=== PATIENT | female | born 2000 | race Caucasian/White ===

== ENCOUNTER → 2022-06-23 14:43 | Outpatient (BNVA) | payer BC, SELFPAY | PROVIDERS: PCP Internal Medicine; Visit Provider Nurse Practitioner Family ==

== ENCOUNTER → 2022-07-13 15:59 | Outpatient (REF) | payer BC, SELFPAY | LOC: HO.SL 15:59 | PROVIDERS: PCP Internal Medicine; Visit Provider Nurse Practitioner Family | DX: G47.9 Sleep disorder, unspecified (principal); G47.19 Other hypersomnia; R06.83 Snoring | CPT/HCPCS: 95806 ==

== ENCOUNTER 2022-08-05 07:57 | Outpatient (REF) | payer BC, SELFPAY ==
--- NOTE | 2022-08-05 08:00 | EEG_ITS ---
PROCEDURE: This is a 16-channel EEG with an EKG lead. Patient is reported awake during the tracing. Background EEG rhythm is 12 to 20, 5 to 20 mV posteriorly and lower amplitude fast anteriorly. Muscle artifacts are noted, especially in inferior leads. Photic stimulation does not produce any significant driving. Hyperventilation is not performed. Cardiac lead does not reveal any significant abnormality. No sharp wave spikes or paroxysmal tendency noted. IMPRESSION: Unremarkable EEG M MD KARLO Pace/BABAR / [id number]
== END 2022-08-05 07:58 | disposition home or self-care (01) ==
LOC: HO.NEURO 07:57
PROVIDERS: PCP Internal Medicine; Visit Provider Nurse Practitioner Family
DX: G43.909 Migraine, unspecified, not intractable, without status migrainosus (principal); R11.15 Cyclical vomiting syndrome unrelated to migraine; R25.1 Tremor, unspecified; R41.82 Altered mental status, unspecified
CPT/HCPCS: 95816

== ENCOUNTER 2022-08-17 10:16 | Outpatient (REF) | payer BC, SELFPAY ==
--- NOTE | ~2022-08-17 | MR_ITS ---
EXAMINATION: MR BRAIN WITHOUT CONTRAST CLINICAL INFORMATION: Altered mental status. Headaches. Tremors. COMPARISON: None. TECHNIQUE: Multiplanar, multisequence imaging of the brain was performed without contrast. FINDINGS: No diffusion abnormalities are identified to suggest an acute infarct. The ventricles are normal in size. No mass effect or midline shift is seen. No brain parenchymal signal abnormality is noted. No extra-axial fluid collections are seen. The brainstem is normal. The left cerebellar tonsil is low-lying, approximately 7 mm caudal to the level of foramen magnum. No lower brainstem compression is seen. The imaged upper cervical cord appears normal. The osseous craniovertebral junction is normal. The pituitary fossa is grossly normal. The gradient refocused acquisition is normal. The marrow signal is normal. The major intracranial flow voids at the level of the [place] are preserved. The dural venous sinus flow voids are maintained. The mastoid air cells are well aerated. Mild ethmoid sinus mucosal thickening noted. 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 Though felt less likely, idiopathic intracranial hypotension can have a similar imaging appearance and clinical correlation is recommended. Query for any history of positional headaches.
== END 2022-08-17 10:17 | disposition home or self-care (01) ==
LOC: HO.MRI 10:16
PROVIDERS: PCP Internal Medicine; Visit Provider Nurse Practitioner Family
DX: R41.82 Altered mental status, unspecified (principal); R25.1 Tremor, unspecified; G43.909 Migraine, unspecified, not intractable, without status migrainosus; R11.15 Cyclical vomiting syndrome unrelated to migraine
CPT/HCPCS: 70551

== ENCOUNTER 2022-10-11 14:45 | Outpatient (AMB) | payer BC, SELFPAY ==
--- NOTE | 2022-10-11 14:51 | MHC.OFFVIS ---
Intake Vital Signs 10/11/22 14:52 Height 5 ft 3 in Weight 200 lb 2 oz BMI 35.4 BP 100/90 H Blood Pressure Location Rt brachial Position Sitting Pulse 100 Pulse Source Pulse Oximeter Pulse Oximetry (%) 99 Oxygen Delivery Method Room Air Intake Visit Reasons: 3M F/u Migraines/new onset shaking - Confirmed Intake Note: Pt presents today to followup on migraines. Pt states they are doing decent, cant really give me a # for migraines a month states they arent necessarily migrainee headaches Allergies haloperidol [From Haldol] Allergy (Intermediate, Verified 10/11/22 14:55) Itching tree nut Allergy (Unknown, Verified 10/11/22 14:55) Unknown Medication List - Last Reconciled 10/11/22 by MENDEZ Lindo epinephrine IM escitalopram oxalate 15 mg PO DAILY PRN lorazepam 0.5 mg PO DAILY PRN ondansetron 4 mg PO Q12H PRN sumatriptan succinate 50 - 100 mg orally at onset of headache, may repeat in 2 hrs PRN; max 2 tabs per day or 4 tabs/week (may take with Ibuprofen) 30 days HPI HPI Comments History of Present Illness Details 21-yr-old presents for f/u visit. Pt denies any significant interval medical changes. Pt reports that they did not try Topiramate- their mother warned them not to take it, as she had had cognitive s/e's from taking it. They are using the Sumatriptan approx 1-2 x's per month which helps- can cause some drowsiness for about 12 hrs- but does not believe this is bothersome enough to try something different. The episodes start with nausea and shaking f/b abd pain (like a knife is cutting her form the inside out), vomiting (this does not stop the attack), shakiness (can be severe and last hours), and a/w photophobia, phonophobia, osmophobia, inability speak (they feel they just cannot communicate during the attack), brain fog, tiredness. May or may not have a headache during the episode.? This is usually occurring at night, but can occur more sporadically during the day as well. The whole episode untreated can last longer than 6 hrs- up to 4 days.? Pt reports that if the headaches are present laying down does not help much. Neck can be tight- possibly r/t chest binder use. No vision changes. Last eye exam- last year- NL. 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 Though felt less likely, idiopathic intracranial hypotension can have a similar imaging appearance and clinical correlation is recommended. Query for any history of positional headaches. 08/05/22: Unremarkable EEG 08/01/22: HST normal w/ AHI 0.3/hr and 92% PFSH Medical History Asthma Depression Family History Mother Hypothyroidism Migraines Maternal Grandmother Lung cancer CAD (coronary artery disease) Paternal Grandmother Lung cancer Father Asthma Heart disease Social History Alcohol intake: never Patient Tobacco Use Status: Never used Tobacco Review of Systems Const All systems reviewed & are unremarkable except as noted in HPI and below Physical Exam Vital Signs: Last Vital Signs Pulse 100 10/11/22 14:52 BP 100/90 H 10/11/22 14:52 Pulse Ox 99 10/11/22 14:52 Oxygen Delivery Method Room Air 10/11/22 14:52 BMI result Body Mass Index 35.4 Const General: cooperative and no acute distress Orientation/consciousness: patient oriented x3 HEENT Head: Yes normocephalic Resp Effort & Inspection: normal respiratory effort and able to speak in complete sentences Neuro General: patient oriented x3, gait normal and CN's II-XI intact bilaterally Cognition (Neuro): normal cognition Motor exam (neuro): 5/5 motor strength present throughout Psych Appearance: grossly normal Mental Status: mental status grossly normal Speech and movement: Normal speech and movement present Affect: normal affect Attitude: cooperative Thought process: Normal thought process present Thought content: Normal thought content present Insight: Good insight present (Psych) Judgement: Good judgement present (Psych) Assessment & Plan Assessment & Plan (1) Cyclical vomiting syndrome: Code(s): R11.15 - Cyclical vomiting syndrome unrelated to migraine (2) Migraine: Code(s): G43.909 - Migraine, unspecified, not intractable, without status migrainosus Plan Reviewed HST- normal Reviewed Brain MRI w/o report and images w/ pt- cerebellar ectopia c/w Chairi I malformation vs intracranial hypotension. Consider f/u MRI w/wo, LP if s/s worsen. Reviewed EEG to rule out an epileptic foci. Eye exam when able For acute headache treatment: Continue Sumatriptan 100mg tab, 1/2 - 1 tab (50-100mg) at onset of headache, may repeat in 2 hours. Max of 2 tabs (200mg) per 24 hours. May adjunct with OTC Tylenol 650mg q 4 hours, Ibuprofen 600mg q 6 hours, or Naproxen 440mg q 12 hrs prn. Continue Lorazepam 0.5mg prn Continue Zofran 4mg ODT- 1-2 tabs prn. Previous acute migraine medication trials: Haldol- burning skin sensation (given in the ER) Acute migraine medication contraindications: none at this time For headache prevention medication: Hold Topiramate 25-50mg qhs- pt wary of s/e's. Previous migraine prevention medication trials: None Migraine prevention medication contraindications: BBs d/t dx of asthma. Amitriptyline- their mother had adverse reaction. F/u in 3 months or sooner prn Coding Level of Care Code Est Pt Level 4 (74113) Diagnoses Cyclical vomiting syndrome R11.15 Migraine G43.909
[2022-10-11 14:52] VITALS: BP 100/90; PULSE 100; O2SAT 99; BMI 35.4
== END 2022-10-11 15:45 | disposition home or self-care (01) ==
PROVIDERS: Visit Provider Nurse Practitioner Family
DX: R11.15 Cyclical vomiting syndrome unrelated to migraine (principal); G43.909 Migraine, unspecified, not intractable, without status migrainosus
CPT/HCPCS: 99214

== ENCOUNTER → 2022-10-11 14:45 | Outpatient (BNVA) | payer BC, SELFPAY | PROVIDERS: Visit Provider Nurse Practitioner Family ==

== ENCOUNTER 2023-01-23 14:44 | Outpatient (AMB) | payer OTHER, SELFPAY ==
--- NOTE | 2023-01-23 14:47 | MHC.OFFVIS ---
Intake Vital Signs 01/23/23 14:48 Weight 216 lb BP 110/76 Blood Pressure Location Rt brachial Position Sitting Pulse 78 Pulse Source Pulse Oximeter Pulse Oximetry (%) 98 Oxygen Delivery Method Room Air Intake Visit Reasons: 3M follow up Migraines/shaking/ LVM Allergies haloperidol [From Haldol] Allergy (Intermediate, Verified 01/23/23 14:50) Itching tree nut Allergy (Unknown, Verified 01/23/23 14:50) Unknown Medication List - Last Reconciled 01/23/23 by MENDEZ Lindo epinephrine IM escitalopram oxalate 15 mg PO DAILY PRN lorazepam 0.5 mg PO DAILY PRN ondansetron 4 mg PO Q12H PRN sumatriptan succinate 50 - 100 mg orally at onset of headache, may repeat in 2 hrs PRN; max 2 tabs per day or 4 tabs/week (may take with Ibuprofen) 30 days HPI HPI Comments History of Present Illness Details 22-yr-old presents for f/u visit. Pt denies any significant interval medical changes. Pt reports she is having a new pressure pain in her left upper lateral paraspinal cervical and left occipital region. They cannot reproduce this with touch. Rarely can have shooting pain down arms. Denies weakness. They are not sure if there is a positional component to this head pain. They wonder if the low lying cerebellar tonsils seen on previous MRI could be contributing. Migraines themselves are not bothersome at this time. [facility] Medical History Depression Asthma Family History Mother Hypothyroidism Migraines Maternal Grandmother Lung cancer CAD (coronary artery disease) Paternal Grandmother Lung cancer Father Asthma Heart disease Social History Alcohol intake: never Patient Tobacco Use Status: Never used Tobacco Review of Systems Const All systems reviewed & are unremarkable except as noted in HPI and below Physical Exam Vital Signs: Last Vital Signs Pulse 78 01/23/23 14:48 BP 110/76 01/23/23 14:48 Pulse Ox 98 01/23/23 14:48 Oxygen Delivery Method Room Air 01/23/23 14:48 Const General: cooperative and no acute distress Orientation/consciousness: patient oriented x3 HEENT Head: Yes normocephalic Resp Effort & Inspection: normal respiratory effort and able to speak in complete sentences Back/Spine/Pelvis Other: Bilateral posterior cervical tightness. Cervical ROM: full Left Spurling: elicited mild non-radiating discomfort Right Spurling: normal. Neuro Other: No palpable facial or scalp tenderness. 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 Trial fluids and caffeine- pt will trial during upcoming break from work. Pt advised to undergo Brain MRI and c-spine MRI w/wo to assess status of low lying cerebellar tonsils, and for presence of pachymeningeal thickening and enhancement?and/or syrinx. ? For acute headache treatment: Continue Sumatriptan 100mg tab, 1/2 - 1 tab (50-100mg) at onset of headache, may repeat in 2 hours. Max of 2 tabs (200mg) per 24 hours. May adjunct with OTC Tylenol 650mg q 4 hours, Ibuprofen 600mg q 6 hours, or Naproxen 440mg q 12 hrs prn. Continue Lorazepam 0.5mg prn Continue Zofran 4mg ODT- 1-2 tabs prn. Previous acute migraine medication trials: Haldol- burning skin sensation (given in the ER) Acute migraine medication contraindications: none at this time ? For headache prevention medication: Hold Topiramate 25-50mg qhs- pt wary of s/e's. Previous migraine prevention medication trials: None Migraine prevention medication contraindications: BBs d/t dx of asthma. Amitriptyline- their mother had adverse reaction. ? F/u in 3 months or sooner prn Orders: Orders MR head/brain wo/w con Today M54.2 - Cervicalgia, Q04.8 - Other specified congenital malformations of brain, R51.9 - Headache, unspecified MR cervical spine wo/w con Today M54.2 - Cervicalgia, Q04.8 - Other specified congenital malformations of brain, R51.9 - Headache, unspecified Coding Level of Care Code Est Pt Level 4 (58834) Diagnoses Cerebellar tonsillar ectopia Q04.8 Occipital headache R51.9 Cervicalgia M54.2 Migraine G43.909
[2023-01-23 14:48] VITALS: BP 110/76; PULSE 78; O2SAT 98
== END 2023-01-23 15:40 | disposition home or self-care (01) ==
PROVIDERS: PCP Internal Medicine; Visit Provider Nurse Practitioner Family
DX: Q04.8 Other specified congenital malformations of brain (principal); R51.9 Headache, unspecified; M54.2 Cervicalgia; G43.909 Migraine, unspecified, not intractable, without status migrainosus
CPT/HCPCS: 99214

== ENCOUNTER → 2023-01-23 14:44 | Outpatient (BNVA) | payer OTHER, SELFPAY | PROVIDERS: PCP Internal Medicine; Visit Provider Nurse Practitioner Family ==

== ENCOUNTER 2023-03-22 15:53 | Outpatient (REF) | payer OTHER, SELFPAY ==
--- NOTE | ~2023-03-22 | MR_ITS ---
EXAMINATION: MR BRAIN WITHOUT AND WITH CONTRAST MRI CERVICAL SPINE WITHOUT AND WITH CONTRAST CLINICAL INFORMATION: Intracranial hypotension. Low lying cerebellar tonsils. Cervical syrinx. COMPARISON: Brain MRI from 08/17/2022. TECHNIQUE: MRI of the brain and cervical spine was obtained using routine sequences without and following the administration of 9 mL of Gadavist intravenous contrast. FINDINGS: Brain: No focal restricted diffusion is demonstrated to suggest acute or subacute cerebral ischemia. No evidence of acute or chronic hemorrhagic products on heme-sensitive imaging. Normal parenchymal signal characteristics. The ventricles are normal in morphology and size. No abnormal mass effect. No midline shift. Normal appearance of the pituitary gland. The cerebellar tonsils are low lying, positioned 0.7 cm below the foramen magnum (similar to exam from 2022). The CSF space of the foramen magnum is maintained. Normal arterial and venous vascular flow voids are present. No abnormal contrast enhancement. Normal, homogeneous marrow signal. Mild mucosal thickening of the paranasal sinuses. No signal abnormalities within the mastoids. Cervical Spine: Straightening of the normal cervical lordosis. Otherwise, normal anatomic alignment. Normal, homogeneous marrow signal throughout. The vertebral body heights are maintained. The intervertebral discs are of normal height and signal. The spinal cord is normal in appearance. No demonstrated spinal cord signal abnormalities. No abnormal contrast enhancement. Limited evaluation of the soft tissues of the neck without demonstrated abnormalities. The flow voids of the major cervical vessels are maintained. Normal appearance of the cervicomedullary junction and visualized posterior fossa. SPINAL LEVELS: Normal annular contours. There is no uncovertebral joint arthropathy. There is no facet joint arthropathy. There is no neural foraminal stenosis. There is no spinal canal stenosis. MR/MR cervical spine wo/w con IMPRESSION: 1. No acute intracranial abnormalities. No abnormal intracranial enhancement. 2. The cerebellar tonsils remain low lying, positioned 0.7 cm below the foramen magnum (similar to exam from 2022). This may be seen in the setting of underlying Chiari I malformation. No demonstrated additional secondary findings of intracranial hypotension/hypertension at this time. 3. No additional MRI abnormalities of the cervical spine. No abnormal enhancement.
[2023-03-22] MEDS: gadobutroL 10 ML VIAL 9 ML IVPUSH (16:58)
== END 2023-03-22 15:54 | disposition home or self-care (01) ==
LOC: HO.MRI 15:53
PROVIDERS: PCP Internal Medicine; Visit Provider Nurse Practitioner Family
DX: Q04.8 Other specified congenital malformations of brain (principal); R51.9 Headache, unspecified; M54.2 Cervicalgia
CPT/HCPCS: 70553; 72156; A9585

== ENCOUNTER 2024-05-03 13:44 | Outpatient (AMB) | payer OTHER, SELFPAY ==
--- NOTE | 2024-05-03 13:44 | A.OFFVIS_ITS ---
Intake Visit Reasons: ED follow up Intake Note: Patient presents ED Follow. Patient was seen at [facility] on Monday04/29/24 and then was seen at [facility] 04/30/24(rec received). 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 orally daily; 21 days sumatriptan succinate 50 - 100 mg orally at onset of headache, may repeat in 2 hrs PRN; max 2 tabs per day or 4 tabs/week (may take with Ibuprofen) 30 days zolmitriptan (Zomig) take 1 tab at onset of headache; if no relief, may repeat 1 tab after at least 2 hrs; max = 2 tabs/24 hrs PO 30 days HPI Comments Details: 23-yr-old presents for f/u urgent televideo visit for status migraine. Pt was last seen in Jan 2023. Pt denies any significant interval medical changes. Pt reports they were having a migraine every 2-4 weeks, which was responsive to sumatriptan. They has noticed a slight increase frequency in migraine in the last few months. 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 Then 1.5 weeks ago, she developed a more severe migraine, they took sumatriptan which helped, but then woke up again with the headache, and that pattern repeated for a few days, and then they developed N/V. Then developed dizziness, and could not work Thursday, and tried to work Monday but was very photophobic- had to wear sunglasses all day. Then Monday, developed vomiting. On Monday, they went to [facility] ER- tx'd w/ migraine cocktail and once effective d/c'd pt. On Monday, they felt ok. On Monday, woke up ok, but then around 8am developed bad vertigo- had to catch herself on the wall. She saw her PCP in the afternoon, on the way to the PCP office, developed a right sided electrical pain stemming from the neck moving up the head, and then had right frontal sharp pain a/w photophobia, phonophobia. The PCP sent them back to the ER. In the ER, was given a migraine cocktail which was effective, and head CT was baseline. On Mon- they felt better, but after school, again developed nausea and migraine and could not do scheuled plans. discharged home on alt ibuprofen and tylenol. On - felt less throbbing headache, and more a pressure headache- not as severe as before. But was having neck tightness, stiffness, and left sided neck electrical neck/back spine. Note- rizatriptan is better tolerated but takes longer to work and not as effective as sumatriptan. They had called the office with above- I sent orders for prednisone, omeprazole, cyclobenzaprine. Started the cyclobenzaprine last night- helped them sleep better and was not waking up every few hours. they started prednisone last night and took 2nd dose thsi am. using a heating maurer on neck and resting is feeling less headache today and less but still present neck tightness. 03/22/2023, MR/MR head/brain wo/w con and MR/MR cervical spine wo/w con IMPRESSION: 1. No acute intracranial abnormalities. No abnormal intracranial enhancement. 2. The cerebellar tonsils remain low lying, positioned 0.7 cm below the foramen magnum (similar to exam from 2022). This may be seen in the setting of underlying Chiari I malformation. No demonstrated additional secondary findings of intracranial hypotension/hypertension at this time. 3. No additional MRI abnormalities of the cervical spine. No abnormal enhancement. [facility] Medical History Depression Asthma Family History Mother Hypothyroidism Migraines Maternal Grandmother Lung cancer CAD (coronary artery disease) Paternal Grandmother Lung cancer Father Asthma Heart disease Social History Alcohol intake: never Patient Tobacco Use Status: Never used Tobacco Physical Exam Const General: cooperative and no acute distress Orientation/consciousness: patient oriented x3 Resp Effort & Inspection: normal respiratory effort and able to speak in complete sentences Neuro General: patient oriented x3 Cognition (Neuro): normal cognition Psych Appearance: grossly normal Mental Status: mental status grossly normal Speech and movement: Normal speech and movement present Affect: normal affect Attitude: cooperative Telehealth Telehealth Telehealth Platform: Whatever Location of provider rendering services: practice address Location of patient: address on file Patient Identification confirmed using: Name, : Yes Telehealth method: video Patient verbally consented to treatment: Yes Patient verbally consented to billing insurance company: Yes Patient informed of any privacy concerns related to visit: Yes Minutes spent on Phone/Video with Pt.: 40 Assessment & Plan Assessment & Plan (1) Status migrainosus: Code(s): G43.901 - Migraine, unspecified, not intractable, with status migrainosus Category: Medical (2) Migraine: Code(s): G43.909 - Migraine, unspecified, not intractable, without status migrainosus Category: Medical (3) Nausea and vomiting: Code(s): R11.2 - Nausea with vomiting, unspecified Category: Medical (4) 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 For status migraine: Continue prednisone taper as ordered Omeprazole 20 mg daily for GI protection while on prednisone Continue cyclobenzaprine 5-10 mg q.h.s. as needed for neck pain and muscle spasm/tightness Zofran 4 mg every 12 hours as needed Trial of Zomig, in hopes this is effective and better tolerated than sumatriptan. Trial sumatriptan 20 mg intranasal spray at onset of migraine associated with nausea and vomiting, may repeat in 2 hours, max 40 mg per day. Future considerations: DHE, budesonide, Zomig nasal spray, sumatriptan injection. ? For acute headache treatment: Continue Sumatriptan 100mg tab, 1/2 - 1 tab (50-100mg) at onset of headache, may repeat in 2 hours. Max of 2 tabs (200mg) per 24 hours. May adjunct with OTC Tylenol 650mg q 4 hours, Ibuprofen 600mg q 6 hours, or Naproxen 440mg q 12 hrs prn. Continue Lorazepam 0.5mg prn Continue Zofran 4mg ODT- 1-2 tabs prn. Previous acute migraine medication trials: Haldol- burning skin sensation (given in the ER). Rizatriptan- not as effective as sumatriptan. Acute migraine medication contraindications: none at this time ? For headache prevention medication: Continue to hold previous recommendation for Topiramate 25-50mg qhs- pt was wary of s/e's. Previous migraine prevention medication trials: None Migraine prevention medication contraindications: BBs d/t dx of asthma. Amitriptyline- their mother had adverse reaction. ? F/u in 3 months or sooner prn Medications: New sumatriptan 20 mg/actuation administer into one nostril as a single dose; if 2nd dose needed,administer into other nostril after at least 2 hrs, NTE 2 doses (40 mg) per episode 20 mg intranasal Q2H PRN 6 ea 6RF migraine headache 22 days G43.909 - Migraine, unspecified, not intractable, without status migrainosus, R11.2 - Nausea with vomiting, unspecified Changed From ondansetron 4 mg PO Q12H PRN nausea To ondansetron 4 mg PO Q12H PRN 30 tabs 3RF nausea 30 days Refilled sumatriptan succinate 50 - 100 mg orally at onset of headache, may repeat in 2 hrs PRN; max 2 tabs per day or 4 tabs/week (may take with Ibuprofen) 12 tabs 6RF migraine headache 30 days Coding Level of Care Code Tele Est Pt Level 4 (22200) Diagnoses Status migrainosus G43.901 Migraine G43.909 Nausea and vomiting R11.2 Cerebellar tonsillar ectopia Q04.8 Occipital headache R51.9 Cervicalgia M54.2
--- OUTSIDE RECORDS SUMMARY | 2024-05-03 15:29 | XMS_ITS | Encounter Summary ---
Author Organization [facility] Address [address] [facility] [address] [place] [phone] Phone Care Team Providers Care Skiver Heel Tap Name Role Phone Mable Ramirez CNP Primary Care Provid er Reason for Referral * E-Consult - New Request Specialty Diagnoses / Procedures Referred By Angela ortega Referred To Contact Endocrinology Diagnoses Thyroid disease Procedures Ambulatory [facility] Endocrinology E-Consult Esperanza Toure MD [address] [place] [phone] Referral ID Status Reason Start Date Expiration Date V isits Requested Visits Authorized [id number] New Request 05/02/2024 1 1 Encounter Details Date Type Department Care Team (Late st Contact Info) Description 05/01/2024 Orders Only [facility] [address] [place] [address] [phone] Esperanza Toure MD [address] [place] [address] [phone] Thyroid disease (Primary Dx) Social History Tobacco Use Types Packs/Day Years Used Date Smoking Tobacco: Never Smokeless Tobacco: Never Child or Family Care Answer Date Record ed Do you have problems with on e of the following making it difficult for you to work, study, or receive health care? No 02/01/2024 Education Answer Date Recorded Are you interested in help w ith more adult education (for example, completing high school, GED, job training, learning the [place] language, technical skills, or developing parenting skills)? No 02/01/2024 Are you concerned about learning? Not on file 02/01/2024 No 02/01/2024 Yes 02/01/2024 Food Answer Date Recorded Within the past 6 months we worried whether our food would run out before we got money to buy more. Never True 02/01/2024 Within the past 6 months the food we bought just didn't last and we didn't have enough money to get more. Never True Residential Stability Answer Date Recor ded What is your housing situation today? I have anoop sing 02/01/2024 How many times have you move d in the past 12 months? Zero (I did not move) 02/01/2024 Paying for Meds Answer Date Recorded Do you have trouble paying for medicines? No 02/01/2024 Paying Utility Bills Answer Date Record ed Do you have trouble paying your heating or elect ricity bill? No 02/01/2024 Transportation Answer Date Recorded Has the lack of transportati on kept you from medical appointments or from getting medications? No 10/13/2022 Unemployment Answer Date Recorded Are you currently unemployed or working on a part-time or temporary basis, and looking for work? No 02/01/2024 Digital Access Answer Date Recorded No 02/01/2024 Yes 02/01/2024 Do you have reliable internet access at home? Ye s 02/01/2024 Do you have a device (e.g., phone, tablet, computer) with a working camera? Yes 02/01/2024 Intimate Partner Violence Answer Date R ecorded Are you denied basic needs s uch as food, clothing, or medical care? No 04/30/2024 In the past 12 months have y ou been in a relationship with a person who hurts, threatens, or tries to control you? No 04/30/2024 Are you denied basic needs s uch as food, clothing, or medical care? No 04/30/2024 In the past 12 months have y ou been in a relationship with a person who hurts, threatens, or tries to control you? No 04/30/2024 Sex and Gender Information Value Date Recorded Sex Assigned at Female 01/22/2024 11:57 AM EST Gender Identity Transgender Male 01/22/2024 11:5 7 AM EST Sexual Orientation Queer 01/22/2024 11 :57 AM EST documented as of this encounter Plan of Treatment Not on file documented as of this encounter Visit Diagnoses Diagnosis Thyroid disease- Primary Unspecified disorder of thyroid documented in this encounter Additional Health Concerns Assessment Noted Time PHQ-9 Depression Total Score: 10 024 7:11 PM EST PHQ-2 Depression Total Score: 3 02/01/20 24 7:11 PM EST documented as of this encounter Care Teams Skiver Heel Tap Relationship Specialty Start Date End Date Mable Ramirez CNP [address] [place] [phone] PCP - General Nurse Practitioner 02/08/24 documented as of this encounter Additional Source Comments The information contained in this document represents components of the legal health record. It is not the complete legal health record.[facility]
--- OUTSIDE RECORDS SUMMARY | 2024-05-03 15:29 | XMS_ITS | Clinical Summary ---
Author Organization [facility] Address [address] [facility] [place] [address] [place] [phone] Phone Care Team Providers Care Redipper Name Role Phone Mable Ramirez CNP Primary Care Provid er Allergies Active Allergy Reactions Criticality Noted Date Comments Haloperidol Anxiety,Itching,Shor tness Of Breath,Sweating High 04/30/2021 Tree Nuts Anaphylaxis,Cough,Hi ves,Itching,Nausea and/or Vomiting High 10/14/2022 Medications Medication Sig Dispensed Refills Start Date End Date Status SUMAtriptan (IMITREX) 100 MG tablet Take 100 mg by mouth daily as needed. Active ondansetron (ZOFRAN-ODT) 4 MG disintegrating tablet TAKE 1 TABLET EVERY 12HOURS NEEDED FOR NAUSEA 10/04/2022 Active LORazepam (ATIVAN) 0.5 MG tablet Take 0.5 mg by mouth continuous prn. 07/23/2021 Active cetirizine (ZYRTEC) 10 MG tablet Take 10 mg by mouth daily. Active escitalopram oxalate (LEXAPRO) 10 MG tablet TAKE 1 AND 1/2 TABLETS DAILY BY MOUTH 90 tablet 5 05/23/2023 Active hydrOXYzine HCL (ATARAX) 10 MG tablet Take 10 mg by mouth daily as needed (insomnia). Active buPROPion (WELLBUTRIN XL) 150 MG ER 24 hr tablet Take 150 mg by mouth every morning. 12/21/2023 Active buPROPion SR (SMOKING DETERRENT) 150 mg Take 150 mg by mouth daily as needed. 01/27/2024 Active sodium chloride (OCEAN) 0.65 % nasal spray 1 spray by Nasal route. 11/13/2023 Active albuterol 90 mcg/actuation inhaler Inhale 2 puffs into the lungs every 6 (six) hours as needed for wheezing or shortness of breath/dyspnea. 8 g 3 04/05/2024 Active albuterol 90 mcg/actuation inhaler Inhale 2 puffs into the lungs every 6 (six) hours as needed. Discontinue d(Reorder) Active Problems Problem Noted Date Diagnosed Date Cyclic vomiting syndrome 10/17/2022 023 Encounters Date Type Department Care Team Description 05/03/2024 Nurse Triage [facility] [address] [place] [phone] Esperanza Toure MD 05/02/2024 E-Consult [facility] [address] [place] [address] Monika Moran MD 05/02/2024 Telephone [facility] [address] [place] [address] 72735 Caroline Yap RN Triage 05/01/2024 Orders Only [facility] [address] [place] [address] Esperanza Toure MD Thyroid disease (Primary Dx) 04/30/2024 3:53 PM EDT - 04/30/2024 7:34 PM EDT Emergency [facility] [address] [place] [phone] Discharge Disposition: Home or Self Care 04/30/2024 2:30 PM EDT Office Visit [facility] [address] [place] [phone] Esperanza Toure MD Acute intractable headache, unspecified headache type (Primary Dx); History of Chiari malformation 04/30/2024 Procedure Pass [facility], Ct Scan - [address] [address] 04/30/2024 Telephone [facility] [address] [place] [address] [phone] Belinda Kang RN Headache 04/05/2024 Refill [facility] [address] [place] [phone] Bal Dewitt MA Medication Refill 02/12/2024 10:25 AM EST - 02/12/2024 11:59 PM EST Hospital Encounter [facility] [address] [address] Esperanza Toure MD Discharge Disposition: Home or Self Care 02/12/2024 10:00 AM EST Office Visit [facility] [address] [place] [phone] Esperanza Toure MD Hyperthyroidism (Primary Dx) 02/09/2024 Orders Only [address] [address] Esperanza Toure MD Hyperthyroidism (Primary Dx); Hypothyroidism, unspecified type 02/08/2024 11:42 AM EST - 02/08/2024 11:59 PM EST Hospital Encounter [facility] [address] [address] Esperanza Toure MD Discharge Disposition: Home or Self Care 02/08/2024 11:00 AM EST Office Visit [facility] [address] Esperanza Toure MD Annual physical exam (Primary Dx) 02/05/2024 Telephone [facility] [address] [place] [phone] Mable Ramirez CNP from Last 3 Months Immunizations Name Administration Dates Next Due COVID-19 (Pre-12/12) Pfizer Vaccine, mRNA, PF 11/30/2020,05/20/2020,04/29/2020 DTaP 03/04/2005, 2,05/30/2000,03/30,01/27/2000 HPV9 03/01/2021,11/04/2020,08/28/2020 Hepatitis B, unspecified formulation 08/21/2000, 1999,1999 Hib, unspecified formulation 08/08/2001, 05/30/2000,03/30/2000,01/26 IPV 03/04/2005, 1,03/30/2000,01/26 Influenza Quadrivalent w/ Pr eservative IM 03/01/2021 Influenza Recombinant Jasmina valent Preservative Free IM 12/18/2019 MMR 03/01/2004,11/28/2000 Meningococcal B, OMV (MenB-4C) 10/11/2018 Meningococcal Conjugate Quad rivalent, MenACWY-TT (MCV4) 08/13/2018,06/25/2012 Pneumococcal conjugate PCV13 11/28/2000,08/22/19,05/30/2000 Tdap 08/28/2020,01/18/2010 Varicella 01/18/2010,11/28/2000 Family History Medical History Relation Comments Heart disease Father Breast cancer Maternal Aunt Lung cancer Maternal Grandmother Migraines Mother Multiple sclerosis Mother Thyroid disease Mother Lung cancer Paternal Grandmother Thyroid cancer Paternal Grandmother Cerebral palsy Sister Thyroid disease Sister Relation Status Comments Father Maternal Aunt Maternal Grandmother Mother Alive Paternal Grandmother Sister Three sisters Social History Tobacco Use Types Packs/Day Years Used Date Smoking Tobacco: Never Smokeless Tobacco: Never Tobacco Cessation:Counseling Given: Not Answered Child or Family Care Answer Date Record ed Do you have problems with on e of the following making it difficult for you to work, study, or receive health care? No 02/01/2024 Education Answer Date Recorded Are you interested in help w ith more adult education (for example, completing high school, GED, job training, learning the [place] language, technical skills, or developing parenting skills)? [...] Orientation Queer 01/22/2024 11 :57 AM EST Last Filed Vital Signs Vital Sign Reading Time Taken Comments Blood Pressure 116/72 04/30/2024 7:33 PM EDT Pulse 68 04/30/2024 7:33 PM EDT Temperature 37.4 ??C (99.3 ??F) 04/30/2024 6:29 PM ED T Respiratory Rate 16 04/30/2024 7:33 PM EDT Oxygen Saturation 98% 04/30/2024 7:33 PM EDT Inhaled Oxygen Concentration - - Weight 100 kg (220 lb 7.4 oz) 04/30/2024 3:25 PM EDT Height 165.1 cm (5' 5 ) 04/30/2024 3:25 PM EDT Body Mass Index 36.69 04/30/2024 3:25 PM EDT Plan of Treatment Health Maintenance Due Date Last Done Comments REPEAT PHQ 03/03/2024 02/01/2024, 02/01/2024 COVID-19 VACCINE ( season) 2024 11/30/2020, 05/20/2020, 04/29/2020 Postponed from 10/22/2023 (Patient Declines / Guardian Declines) INFLUENZA VACCINE (#1) 2024 03/01/2021, 2019 Postponed from 09/21/2023 (Patient Declines / Guardian Declines) PAP SMEAR 10/21/2024 Postponed from 11/25/2020 (Not Clinically Appropriate) HIV ONE-TIME SCREENING (18-65 YEARS) 01/20/2025 Postponed from 11/25/2017 (Patient Declines / Guardian Declines) SMOKING Hx and SMOKELESS TOBACCO SCREENING 01/20/2025 Postponed from 11/25/2012 (Not Clinically Appropriate) DEPRESSION SCREENING 01/31/2025 02/01/2024, 02/01/20 24 CHLAMYDIA SCREENING 02/07/2025 Postpone d from 2015 (Patient Declines / Guardian Declines) HEPATITIS C SCREENING 02/07/2025 Postpo earlene from 11/25/2017 (Patient Declines / Guardian Declines) Adult Td,Tdap Booster 08/28/2030 08/28/2020, 010 PNEUMOCOCCAL VACCINES (0-49 years) Completed 11/28/2000, 08/21/2000, 05/30/2000 HIB VACCINES Completed 08/08/2001, 05/21, 03/30/2000, Additional history exists MENINGOCOCCAL VACCINES (ACWY) Completed 08/13/2018, 06/25/2012 HPV VACCINES Completed 03/01/2021, 10/21, 08/28/2020 HEPATITIS A VACCINES Aged Out No long er eligible based on patient's age to complete this topic Medical Devices Not on file Procedures Procedure Name Priority Date/Time Associated Diagnosis Comments CT HEAD WITHOUT CONTRAST Routine 04/30/2024 5:21 PM EDT TSH WITH REFLEX STAT 04/30/2024 4:40 PM EDT FREE T3 Routine 02/12/2024 10:25 AM EST FREE T4 Routine 02/12/2024 10:25 AM EST TSH WITH REFLEX Routine 02/12/2024 10:25 AM EST Hyperthyroidism THYROID STIMULATING IMMUNOGLOBULIN Routine 02/12/2024 10:25 AM EST Hyperthyroidism FREE T3 Routine 02/08/2024 11:42 AM EST FREE T4 Routine 02/08/2024 11:42 AM EST CBC Routine 02/08/2024 11:42 AM EST Annual physical exam COMPREHENSIVE METABOLIC PANEL Routine 02/08/2024 11:42 AM EST Annual physical exam LIPID PANEL Routine 02/08/2024 11:42 AM EST Annual physical exam TSH WITH REFLEX Routine 02/08/2024 11:42 AM EST Annual physical exam from Last 3 Months Results * CT HEAD WITHOUT CONTRAST (04/30/2024 5:21 PM EDT) Anatomical Region Laterality Modality Head Computed Tomogra phy 04/30/2024 6:53 PM EDT Impressions 04/30/2024 7:00 PM EDT No acute intracranial findings. Low-lying cerebellar tonsils. Narrative 04/30/2024 7:[address] HEAD WITHOUT CONTRAST Referring clinician's provided indication for this examination in Epic: * Headache, chronic, new features or increased frequency; known chiari malformation TECHNIQUE: CT of the head was performed without intravenous contrast using tailored dose modulation techniques. Images were reconstructed in the axial, coronal, and sagittal planes. COMPARISON: None. FINDINGS: Brain Parenchyma: No midline shift, mass effect, parenchymal hemorrhage, or evidence of acute territorial infarct. Ventricular System and Extra-Axial Spaces: No extra-axial fluid collections. Basal cisterns are patent. No hydrocephalus. There are low lying cerebellar tonsils with crowding of the cerebellar tonsils at the foramen magnum. Osseous and Extracranial Structures: No calvarial fracture or significant soft tissue hematoma. No significant paranasal sinus disease. No orbital abnormality. Procedure Note Federico Wright MD - 04/30/2024 CT HEAD WITHOUT CONTRAST Referring clinician's provided indication for this examination in [facility]: *Headache, chronic, new features or increased frequency; known chiarimalformation TECHNIQUE: CT of the head was performed without intravenous contrast usingtailored dose modulation techniques. Images were reconstructed in theaxial, coronal, and sagittal planes. COMPARISON: None. FINDINGS: Brain Parenchyma: No midline shift, mass effect, parenchymal hemorrhage,or evidence of acute territorial infarct. Ventricular System and Extra-Axial Spaces: No extra-axial fluidcollections. Basal cisterns are patent. No hydrocephalus. There are lowlying cerebellar tonsils with crowding of the cerebellar tonsils at theforamen magnum. Osseous and Extracranial Structures: No calvarial fracture or significantsoft tissue hematoma. No significant paranasal sinus disease. No orbitalabnormality. IMPRESSION: No acute intracranial findings. Low-lying cerebellar tonsils. Gayla Stevenson PA-C IMG CT HEAD/NECK * TSH with reflex (04/30/2024 4:40 PM EDT) Only the most recent of3 resultswithin the time period is included. TSH 1.70 0.27 - 4.20 uIU/mL [facility] Blood 04/30/2024 4:40 PM EDT 04/30/2024 4:43 PM EDT Gayla Stevenson PA-C LAB BLOOD ORDERABLE S [facility] [address] [place] [address] * (ABNORMAL) Thyroid stimulating immunoglobulin (02/12/2024 10:25 AM EST) TSI 1.9(H) <=1.3 TSI index [facility] [address] Blood 02/12/2024 10:2 5 AM EST 02/12/2024 10:50 AM EST Esperanza Toure MD LAB BLOOD ORDERABLE S [facility] [address] [place] [address] * Free T3 (02/12/2024 10:25 AM EST) Only the most recent of2 resultswithin the time period is included. FREE T3 3.3 2.0 - 4.4 pg/mL [facility] 02/12/2024 10:2 5 AM EST 02/12/2024 10:50 AM EST Esperanza Toure MD LAB BLOOD ORDERABLE S Performing Organization Address [facility] Co de Phone Number [address] [address] * Free T4 (02/12/2024 10:25 AM EST) Only the most recent of2 resultswithin the time period is included. FREE T4 1.2 0.9 - 1.7 ng/dL [facility] 02/12/2024 10:2 5 AM EST 02/12/2024 10:50 AM EST Esperanza Toure MD LAB BLOOD ORDERABLE S Performing Organization Address City/[facility]/ZIP Co de Phone Number [address] [address] * (ABNORMAL) Comprehensive metabolic panel (02/08/2024 11:42 AM EST) SODIUM 140 133 - 146 mmol/L [facility] POTASSIUM 3.8 3.3 - 5.1 mmol/L [facility] CHLORIDE 102 96 - 108 mmol/L [facility] CO2 25 21 - 35 mmol/L [facility] BUN 5(L) 6 - 19 mg/dL [facility] CREATININE 0.60 0.5 - 1.5 mg/dL [facility] GLUCOSE 76 70 - 99 mg/dL [facility] ALBUMIN 4.4 3.9 - 4.8 g/dL [facility] TOTAL PROTEIN 7.6 6.5 - 8.0 g/dL [facility] CALCIUM 10.0 8.4 - 10.3 mg/dL [facility] ALKALINE PHOSPHATASE 88 39 - 117 U/L [facility] TOTAL BILIRUBIN 0.4 0.0 - 1.2 mg/dL [facility] AST 32 0 - 37 U/L [facility] ALT 11 0 - 40 U/L [facility] GLOBULIN 3.2 1 - 4.8 g/dL [facility] EGFR >120 >59 mL/min/1.7 3m2 [facility] Comment:Estimated glomerular filtration rate calculated using the CKD-EPI refit equation. ANION GAP 17 10 - 20 mmol/L [facility] Blood 02/08/2024 11:4 2 AM EST 02/08/2024 11:47 AM EST Esperanza Toure MD LAB BLOOD ORDERABLE S Performing Organization Address City/State/[facility] Co de Phone Number [address] [address] * CBC (02/08/2024 11:42 AM EST) WBC 7.52 4.00 - 11.00 K/uL [facility] RBC 4.94 4.00 - 5.20 M/uL [facility] HGB 14.7 12.0 - 16.0 g/dL [facility] HCT 43.7 36.0 - 46.0 % [facility] PLT 376 150 - 450 K/uL [facility] MCV 88.5 80.0 - 100.0 fL [facility] MCH 29.8 27.0 - 31.0 pg [facility] MCHC 33.6 32.0 - 36.0 g/dL [facility] RDW 12.7 11.5 - 14.5 % [facility] MPV 10.3 8.4 - 12.0 fL [facility] NRBC 0.00 0.00 /100 WBCs [facility] ABSOLUTE NRBC 0.00 0.00 K/uL [facility] Blood 02/08/2024 11:4 2 AM EST 02/08/2024 11:47 AM EST Esperanza Toure MD LAB BLOOD ORDERABLE S Performing Organization Address [facility]/ZIP Co de Phone Number [address] [address] * Lipid panel (02/08/2024 11:42 AM EST) HDL 42 mg/dL [facility] Comment: ? Interpretation <40 mg/dL: Low HDL cholesterol (major risk factor for CHD) Greater than or equal to 60 mg/dL: High HDL cholesterol ( negative risk factor for CHD) HDL - cholesterol is affected by a number of factors, e.g. smoking, excerise, hormones, sex and age. CHOLESTEROL 164 0 - 240 mg/dL [facility] TRIGLYCERIDES 71 30 - 160 mg/dL [facility] LDL 108 50 - 129 mg/dL [facility] Comment: LDL levels in terms of risk for coronary heart disease: <100 mg/dL: Optimal 100-129 mg/dL: Near or above optimal 130-159 mg/dL: Borderline high 160-189 mg/dL: High >190 mg/dL: Very High CARDIAC RISK RATIO 3.9 3.3 - 4.4 C [facility] Blood 02/08/2024 11:4 2 AM EST 02/08/2024 11:46 AM EST Esperanza Toure MD LAB BLOOD ORDERABLE S [address] [address] from Last 3 Months Care Teams Redipper Relationship Specialty Start Date End Date Mable Ramirez CNP [address] [place] [phone] PCP - General Nurse Practitioner 02/08/24 Additional Source Comments The information contained in this document represents components of the legal health record. It is not the complete legal health record.[facility]
--- OUTSIDE RECORDS SUMMARY | 2024-05-03 15:29 | XMS_ITS | Encounter Summary ---
Author Organization [facility] Address [address] [facility] [address] [place] [phone] Phone Care Team Providers Care Supervisor Buffing And Pasting Name Role Phone Mable Ramirez CNP Primary Care Provid er Reason for Visit * Reason Onset Date Comments Triage 05/02/2024 Encounter Details Date Type Department Care Team (Late st Contact Info) Description 05/02/2024 Telephone [facility] [address] [place], [place] [id number] Caroline Yap, MAYE [address] [place], [place] Triage Social History Tobacco Use Types Packs/Day Years [...] high school, GED, job training, learning the [place] language, technical skills, or developing parenting skills)? [...] AM EST documented as of this encounter Progress Notes * Caroline Yap, RN - 05/02/2024 4:21 PM EDT Outgoing call to Ab to check in. Pt states they got in touch with neurologist's office and reports they are considering starting pt on prednisone to bring down inflammation. Pt states they are hopeful they will see their neurologist tomorrow. Pt will f/u PRN, had no further questions. * Caroline Yap RN - 05/02/2024 12:23 PM EDT Incoming call from Ab re: Head pain Pt reports that their headache has returned and the pain in their neck feels like it's now going down their spine. Pt seen at [facility] ED 04/29, given migraine cocktail, which helped for ~24 hours until it wore off, pain returned. Seen 04/30 at with Esperanza Alatorre MD and instructed to go to [facility] ED wherept given another migraine cocktail and pain improved. After 24 hours, medication wore off and pain has returned. Pt sounded distressed over phone and was intermittently crying. Pt reports Hx of migraines/headaches that improved in 24 hours, but reports that this episode has lasted almost 1.5 weeks and seems to be worsening. Currently taking Aspirin & Tylenol (last dose today at 8:30am). States that pain is insufficiently controlled. Currently pt is experiencing dizziness, neck pain, and headache Hx Chiari malformation that had not previously been treated with surgical intervention because Sx'shadn't been severe. Currently has a neurologist they see at [facility]. Pt states they have an appointment tomorrow 05/03 and pt is concerned that the provider will cancel appointmentbecause the provider has called out sick recently. I advised they should contact the neurologist office for support. I advised that their neurologist would be the best resource, and that pt's Sx's exceed the capability of us as their primary care office. Advised that they could go to ED for another migraine cocktail to improve Sx's for the time being. I advised that they continue taking their OTC pain medications. Provided emotional support and told them that I wish we could help them more. Pt verbalized understanding, agreed with plan, will contact neuro, will f/u PRN, and had no furtherquestions. documented in this encounter Plan of Treatment Not on file documented as of this encounter Visit Diagnoses Not on filedocumented in this encounter Additional Health Concerns Assessment Noted Time PHQ-9 Depression Total Score: 10 024 7:11 PM EST PHQ-2 Depression Total Score: 3 02/01/20 7:11 PM EST documented as of this encounter Care Teams Supervisor Buffing And Pasting Relationship Specialty Start Date End Date Mable Ramirez CNP [address] [place] [phone] PCP - General Nurse Practitioner 02/08/24 documented as of this encounter Additional Source Comments The information contained in this document represents components of the legal health record. It is not the complete legal health record.[facility]
--- OUTSIDE RECORDS SUMMARY | 2024-05-03 15:29 | XMS_ITS | Encounter Summary ---
Author Organization [facility] Address [address] [employer] [facility] [address] [place] [phone] Phone Care Team Providers Care Immigration Judge Name Role Phone Mable Ramirez CNP Primary Care Provid er Encounter Details Date Type Department Care Team (Late st Contact Info) Description 05/03/2024 Nurse Triage [facility] [address] [place] [address] [phone] Esperanza Toure MD [address] [place] [address] [phone] Social History Tobacco Use Types Packs/Day Years [...] high school, GED, job training, learning the Sammarinese language, technical skills, or developing parenting skills)? [...] your housing situation today? I have anoop butler 02/01/2024 How many times have you move [...] as of this encounter Plan of Treatment Scheduled Orders Name Type Priority Associated Diagnoses Orde r Schedule TSH with reflex Lab Routine Graves disease Expected: 06/03/2024, Expires: 08/03/2024 documented as of this encounter Visit Diagnoses Diagnosis Graves disease- Primary Toxic diffuse goiter without mention of thyrotoxic crisis or storm documented in this encounter Additional Health Concerns Assessment Noted Time PHQ-9 Depression Total Score: 10 024 7:11 PM EST PHQ-2 Depression Total Score: 3 02/01/20 24 7:11 PM EST documented as of this encounter Care Teams Immigration Judge Relationship Specialty Start Date End Date Mable Ramirez CNP [address] [place] [phone] PCP - General Nurse Practitioner 02/08/24 documented as of this encounter Additional Source Comments The information contained in this document represents components of the legal health record. It is not the complete legal health record.[facility]
--- OUTSIDE RECORDS SUMMARY | 2024-05-03 15:29 | XMS_ITS | Encounter Summary ---
Author Organization [facility] Address [address] [facility] [address] [place] [phone] Phone Care Team Providers Care Coil Binder Name Role Phone Mable Ramirez CNP Primary Care Provid er Encounter Details Date Type Department Care Team (Late st Contact Info) Description 05/02/2024 E-Consult [facility] [address] [place] [phone] Monika Moran MD [address] [place] [phone] [email or web address] Social History Tobacco Use Types Packs/Day Years [...] high school, GED, job training, learning the Gabonese language, technical skills, or developing parenting skills)? [...] as of this encounter Progress Notes * Monika Moran MD - 05/02/2024 9:50 PM EDT Images from the original note were not included. Trem-oe-Pjmn eConsult question: I am writing to refer a patient for further evaluation of abnormal thyroid function tests. The patient is a 23 who is currently does not take any supplemental thyroid medication. Recent thyroid function labs have been inconsistent, and I would appreciate your expert g uidance on the next steps in management. Dear , Esperanza Dsouza MD Thank you for requesting a bkkb-df-eyxr endocrine e-Consult. From my review of the records, I see that Lady Navarrete is a 23 y.o. adult, with cyclic vomiting who presented to ER 01/2024 with fatigue,shakiness, rapid heart rate for 2-3 years and a low TSH. She has a FHx of Graves and thyroid cancer. Med list is notable for: hydroxyzine, lorazepam, escitalopram, bupropion, ondansetron, cetirizine,albuterol, Imitrex, bupropion. Recent weight 220 lbs, BMI 36.7, BP 116/72, HR 68. Recent Labs 02/08/24 1142 02/12/24 1025 04/30/24 1640 TSH 0.19* 0.14* 1.70 FT4 1.3 1.2 -- FT3 (PG/ML) 3.6 3.3 -- TSI INDEX -- 1.9* -- No TFT's prior to 01/2024 BMP normal, LFT normal, CBC normal CT head 04/2024 for headache as unremarkable Based on the history from the chart and information you supplied in the Dpfx-qh-Ecwm eConsult question, TFT abnormalities in 01/2024 with elevated TSI is c/w mild Graves. However, recent TSH is normal - Graves may have gone into remission spontaneously or subacute thyroiditis is resolving. Supplementation with biotin (see below) can also interfere with TFT assays and erroneously cause these TFT changes. I would recommend holding biotin for at least 3 days and rechecking a thyroid screen (TSH with reflex) in 4-6 weeks. If TSH is still low, c/w mild Graves, obtain a thyroid US to evaluate for nodules and refer to endocrine for consultation for further management. Please be in touch with the results of recommended testing if I can help to interpret or to furthertriage the case. Please note that, because this is an eConsult, I have not had the opportunity to speak with or examine the patient. The above must be interpreted after taking into account any considerations that arenot available to me from the consult question or records I have reviewed. The ongoing management of this clinical problem is the responsibility of the referring provider andother members of the patient???s care team. Please alert me if there are further questions. If an in-person or virtual consultation is desired, please refer the patient in EPIC to be scheduled for anappointment with an [facility] provider. Sincerely, Monika Moran MD documented in this encounter Plan of Treatment Not on file documented as of this encounter Visit Diagnoses Not on filedocumented in this encounter Additional Health Concerns Assessment Noted Time PHQ-9 Depression Total Score: 10 024 7:11 PM EST PHQ-2 Depression Total Score: 3 02/01/20 24 7:11 PM EST documented as of this encounter Care Teams Coil Binder Relationship Specialty Start Date End Date Mable Ramirez CNP [address] [place] [phone] PCP - General Nurse Practitioner 02/08/24 documented as of this encounter Additional Source Comments The information contained in this document represents components of the legal health record. It is not the complete legal health record.[facility]
--- OUTSIDE RECORDS SUMMARY | 2024-05-03 15:29 | XMS_ITS | Encounter Summary ---
Author Organization [facility] Address [address] [facility] [address] [place] [phone] Phone Care Team Providers Care Civil Design Technician Name Role Phone Mable Ramirez CNP Primary Care Provid er Reason for Visit * Reason Comments Migraine Encounter Details Date Type Department Care Team ([facility] st Contact Info) Description 04/30/2024 3:53 PM EDT - 04/30/2024 7:34 PM EDT Emergency [facility] [address] [place] [address] Discharge Disposition: Home or Self Care Social History Tobacco Use Types Packs/Day Years [...] high school, GED, job training, learning the [place] language, technical skills, or developing parenting skills)? [...] AM EST documented as of this encounter Last Filed Vital Signs Vital Sign Reading [...] Mass Index 36.69 04/30/2024 3:25 PM EDT documented in this encounter Discharge Instructions * Discharge Instructions* Gayla Stevenson PA-C - 04/30/2024 7:20 PM EDT You have been evaluated in the Emergency Department today for headache. Your evaluation did not show evidence of medical conditions requiring emergent intervention at this time, and your pain improved with medication in the ED. We recommend you take 600mg ibuprofen every 6 hours or tylenol 650mg every 6 hours as needed for pain. If needed, you can alternate these medications so that you take one medication every 3 hours. For instance, at noon take ibuprofen, then at 3pm take tylenol, then at 6pm take ibuprofen. Please follow up with your primary care provider and your neurologist within a week. Return to the Emergency Department if you experience worsening or uncontrolled pain, vision changes, recurrent vomiting, difficulty with normal activities, abnormal behavior, difficulty walking, numbness, weakness, or any other concerning symptoms. Feel better!! documented in this encounter Medications at Time of Discharge Medication Sig Dispensed Refills Start Date End Date albuterol 90 mcg/actuation inhaler Inhale 2 puffs into the lungs every 6 (six) hours as needed for wheezing or shortness of breath/dyspnea. 8 g 3 04/05/2024 buPROPion (WELLBUTRIN XL) 150 MG ER 24 hr tablet Take 150 mg by mouth every morning. 12/21/2023 buPROPion SR (SMOKING DETERRENT) 150 mg Take 150 mg by mouth daily as needed. 01/27/2024 cetirizine (ZYRTEC) 10 MG tablet Take 10 mg by mouth daily. escitalopram oxalate (LEXAPRO) 10 MG tablet TAKE 1 AND 1/2 TABLETS DAILY BY MOUTH 90 tablet 5 05/23/2023 hydrOXYzine HCL (ATARAX) 10 MG tablet Take 10 mg by mouth daily as needed (insomnia). LORazepam (ATIVAN) 0.5 MG tablet Take 0.5 mg by mouth continuous prn. 07/23/2021 ondansetron (ZOFRAN-ODT) 4 MG disintegrating tablet TAKE 1 TABLET EVERY 12HOURS NEEDED FOR NAUSEA 10/04/2022 sodium chloride (OCEAN) 0.65 % nasal spray 1 spray by Nasal route. 11/13/2023 11/12/2024 SUMAtriptan (IMITREX) 100 MG tablet Take 100 mg by mouth daily as needed. documented as of this encounter ED Notes * Karen Rivera RN - 04/30/2024 7:34 PM EDT ED Discharge Nursing Note Pt agreeeable to d/c plan. Verbal and written d/c instructions given to patient, verbalized understanding. Pt d/c home ambulatory accompanied by mother Reports feeling better, no pain at this time. * Arlene Arndt RN - 04/30/2024 6:20 PM EDT ED Nursing Progress Note Pt reports improvement of headache. States light sensitivity and dizziness have improved. Comfort and safety measures in place. * Peggy Granados RN - 04/30/2024 3:24 PM EDT Pt reports a migraine for the last week. Pt reports taking rescue medication at home with out much relief. Pt states they were seen last night at [facility] last night and they were able to get the head pain to calm down but the neck pain, dizziness, light sensitivity. Went went to go see PCP and they told her to come her as her home meds might not be working well and be causing relapse symptoms. * Gayla Stevenson PA-C - 04/30/2024 3:08 PM EDT Chief Complaint Chief Complaint Patient presents with Migraine History of Present Illness The patient, Lady Navarrete,is a 23 y.o. adult who presents for evaluation of Migraine The patient reports migraine for over a week. Similar to previous migraines but lasting longer and with associated neck pain. No fevers, vision changes, nausea, vomiting. No weakness, numbness/tingling extremities, confusion, syncope, seizures. No recent injuries or trauma. Was seen at [facility] yesterday and treated with migraine cocktail with resolution of symptoms, however they returned this morning. Did not have any imaging done yesterday. Saw PCP this morning and was instructed to return to the ED. Unless otherwise specified, I have reviewed and agree with the triage and nursing notes. ROS A ten point review of systems was negative except what was noted in the HPI. Review of Systems Past Medical History Past Medical History: Diagnosis Date Asthma Past Surgical History No past surgical history on file. Home Medications Prior to Admission medications Medication Sig buPROPion SR (SMOKING DETERRENT) 150 mg 150 mg, Oral, Daily as needed cetirizine (ZYRTEC) 10 MG tablet 10 mg, Oral, Daily escitalopram oxalate (LEXAPRO) 10 MG tablet 15 mg, Oral, Daily LORazepam (ATIVAN) 0.5 MG tablet 0.5 mg, Oral, Continuous PRN ondansetron (ZOFRAN-ODT) 4 MG disintegrating tablet TAKE 1 TABLET EVERY 12HOURS NEEDED FOR NAUSEA SUMAtriptan (IMITREX) 100 MG tablet 100 mg, Oral, Daily as needed albuterol 90 mcg/actuation inhaler 2 puffs, Inhalation, Every 6 hours PRN buPROPion (WELLBUTRIN XL) 150 MG ER 24 hr tablet 150 mg, Oral, Every morning hydrOXYzine HCL (ATARAX) 10 MG tablet 10 mg, Oral, Daily as needed sodium chloride (OCEAN) 0.65 % nasal spray 1 spray, Nasal Allergies Allergies Allergen Reactions Haloperidol Anxiety, Itching, Shortness Of Breath and Sweating Tree Nuts Anaphylaxis, Cough, Hives, Itching and Nausea and/or Vomiting Social and Family History Social History Tobacco Use Smoking status: Never Smokeless tobacco: Never Substance Use Topics Alcohol use: Not on file Social History Substance and Sexual Activity Drug Use Not on file Family History Problem Relation Age of Onset Migraines Mother Thyroid disease Mother Multiple sclerosis Mother Heart disease Father Cerebral palsy Sister Thyroid disease Sister Breast cancer Maternal Aunt Lung cancer Maternal Grandmother Lung cancer Paternal Grandmother Thyroid cancer Paternal Grandmother Physical Exam Vital Signs: ED Triage Vitals Encounter Vitals Group BP 04/30/24 1534 113/74 Systolic BP Percentile -- Diastolic BP Percentile -- Heart Rate 04/30/24 1534 (!) 105 Respiratory Rate 04/30/24 1534 18 Temperature 04/30/24 1525 37.7 ??C (99.9 ??F) Temp Source 04/30/24 1525 Temporal SpO2 04/30/24 1534 97 % Weight 04/30/24 1525 220 lb 7.4 oz Height 04/30/24 1525 5' 5 Head Circumference -- Peak Flow -- Pain Score -- Pain Loc -- Pain Education -- Exclude from Growth Chart -- Physical Exam Appearance: Alert. Oriented x3. No acute distress. Head: Normocephalic, atraumatic. Eyes: Pupils equal, round and reactive to light. ENT: Oropharynx clear, mucous membranes moist. Trachea midline. Neck: Normal inspection. Neck supple. Full ROM with flexion, extension, and cjkv-tx-mzhc rotation with no discomfort noted. No meningismus. No midline tenderness. No tenderness of the paraspinal muscles. CVS: Normal heart rate and rhythm. Pulses normal. Respiratory: No respiratory distress. Breath sounds normal. Abdomen: Soft and nontender. No rebound or guarding, no distention Skin: Skin warm and dry. No rashes. Extremities: Moving all extremities without difficulty Neuro/psych: No focal deficit present. Alert and oriented to person, place, and time. No cranial nerve deficits. Speech is clear and fluent. No pronator drift Cranial Nerves II-XII intact as follows: II - Vision is grossly normal with no obvious visual field defect. III, IV, - PERRL. EOM's are intact without nystagmus. V - Facial sensation is normal. VII - Face is symmetric without droop. VIII - Hearing grossly normal and symmetric. IX,X - Patient is not hoarse. No deviation of uvula. XI - Shrug strength is normal and symmetric. XII - Tongue protrudes in the midline. Motor exam: Upper and lower extremities demonstrate symmetrical strength. Sensory exam: normal sensation to light touch symmetrically on all extremities. Psychiatric: Mood and affect normal. Behavior normal Laboratory Testing Results for orders placed or performed during the hospital encounter of 04/30/24 TSH with reflex Specimen: Blood Result Value Ref Range TSH 1.70 0.27 - 4.20 uIU/mL Radiology Testing CT Head Final Result No acute intracranial findings. Low-lying cerebellar tonsils. Medication from 04/30/2024 1508 to 04/30/2024 1930 Date/Time Order Dose Route Action Action by Comments 04/30/2024 1653 EDT sodium chloride 0.9% bolus 1,000 mL 1,000 mL Intravenous New Bag Arlene Arndt Joanie RN -- 04/30/2024 1809 EDT sodium chloride 0.9% bolus 1,000 mL 0 mL Intravenous Stopped Yris Arlenecaron Nair RN -- 04/30/2024 1657 EDT diphenhydrAMINE (BENADRYL) injection 25 mg 25 mg Intravenous Given Arlene Arndt RN -- 04/30/2024 1654 EDT ketorolac (TORADOL) injection 15 mg 15 mg Intravenous Given Arlene ArndtRN -- 04/30/2024 1741 EDT magnesium sulfate 2 gram/50 mL (4%) in Sterile Water IVPB premix 2 g 2 g Intravenous New Bag Arlene Arndt Joanie, RN -- 04/30/2024 1814 EDT magnesium sulfate 2 gram/50 mL (4%) in Sterile Water IVPB premix 2 g 0 g Intravenous Stopped Yris Arlenecaron Nair, RN -- 04/30/2024 1655 EDT dexAMETHasone (DECADRON) injection 4 mg 4 mg Intravenous Given Arlene Arndt, RN -- [facility] Assessment and Plan: 23-year-old with significant past medical history of migraines, Chiari malformation, presenting forevaluation of migraine. Seen and evaluated. Afebrile with stable vital signs on arrival. Hemodynamically stable. Physical exam as above. Patient without headache red flags. Neuroexam without evidence of meningismus, AMS, focal neurofindings. CT scan ordered given new headache features and known Chiari malformation, however showed no acute intracranial findings. Did note low-lying cerebellar tonsils. Also ordered TSH given patient has history of hypothyroidism and results WNL. Given history, exam, and workup, doubt meningitis, encephalitis, stroke, ICH, carotid artery dissection, mass effect from tumor or abscess. Pain was controlled with headache cocktail and expressed improvement of symptoms. Discussed ongoing symptomatic treatment at home and patient instructed to foll ow-up with PCP and neurologist. Results forwarded to patient's neurologist. Patient was given strict return precautions and expressed understanding. Discharged in stable condition. Patient was discussed with ED attending, Dr. Daniel Griffin. Clinical Impressions as of 04/30/241929 Migraine without status migrainosus, not intractable, unspecified migraine type Clinical Impression Diagnosis Description Comment Final diagnosis Migraine without status migrainosus, not intractable, unspecified migraine type Migraine without status migrainosus, not intractable, unspecified migraine type -- Disposition: Home Gayla Stevenson PA-C 04/30/241929 Gayla Stevenson PA-C 04/30/241930 documented in this encounter Plan of Treatment Not on file documented as of this encounter Procedures Procedure Name Priority Date/Time Associated Diagnosis Comments CT HEAD WITHOUT CONTRAST Routine 04/30/2024 5:21 PM EDT TSH WITH REFLEX STAT 04/30/2024 4:40 PM EDT documented in this encounter Results * CT HEAD WITHOUT CONTRAST (04/30/2024 [...] provided indication for this examination in Epic: *Headache, chronic, new features or increased frequency; [...] TSH with reflex (04/30/2024 4:40 PM EDT) TSH 1.70 0.27 - 4.20 uIU/mL [facility] Blood 04/30/2024 4:40 PM EDT 04/30/2024 4:43 PM EDT Gayla Stevenson PA-C LAB BLOOD ORDERABLE S [facility] [address] [place] [address] documented in this encounter Visit Diagnoses Diagnosis Migraine without status migrainosus, not intractable, unspecified migraine type- Primary documented in this encounter Administered Medications Inactive Administered Medications - up to 3 most recent administrations Medication Order MAR Action Action Date Dose Rate Site dexAMETHasone (DECADRON) injection 4 mg 4 mg, Intravenous, Once, On Mon04/30/24 at 1630, For 1 dose Given 04/30/2024 4:55 PM EDT 4 mg diphenhydrAMINE (BENADRYL) injection 25 mg 25 mg, Intravenous, Once, On Mon04/30/24 at 1630, For 1 dose Given 04/30/2024 4:57 PM EDT 25 mg ketorolac (TORADOL) injection 15 mg 15 mg, Intravenous, Once, On Mon04/30/24 at 1630, For 1 dose Given 04/30/2024 4:54 PM EDT 15 mg magnesium sulfate 2 gram/50 mL (4%) in Sterile Water IVPB premix 2 g 2 g, Intravenous, Administer over 30 Minutes, at 100 mL/hr, Once, On Mon04/30/24 at 1630, For 1 dose New Bag 04/30/2024 5:41 PM EDT 2 g 100 mL/hr sodium chloride (NS) 0.9 % syringe flush 3 mL 3 mL, Intravenous, As needed, line care, Starting on Mon04/30/24 at 1627, Per Institutional IV Line Care Policy. sodium chloride 0.9% bolus 1,000 mL 1,000 mL, Intravenous, Administer over 30 Minutes, at 2,000 mL/hr, Once, On Mon04/30/24 at 1630, For 1 dose New Bag 04/30/2024 4:53 PM EDT 1,000 mL 2000 mL/hr documented in this encounter Active and Recently Administered Medications Due to Daylight Saving Time, this section may contain times in both EST and EDT. Scheduled Medication Order 04/28/2024 04/29/2024 04/30/2024 dexAMETHasone (DECADRON) injection 4 mg (COMPLETED) 4 mg, Intravenous, Once, On Mon04/30/24 at 1630, For 1 dose 1654 (Given - Provid er: Arlene Arndt RN) diphenhydrAMINE (BENADRYL) injection 25 mg (COMPLETED) 25 mg, Intravenous, Once, On Mon04/30/24 at 1630, For 1 dose 1656 (Given - Provid er: Arlene Arndt RN) ketorolac (TORADOL) injection 15 mg (COMPLETED) 15 mg, Intravenous, Once, On Mon04/30/24 at 1630, For 1 dose 1654 (Given - Provid er: Arlene Arndt RN) magnesium sulfate 2 gram/50 mL (4%) in Sterile Water IVPB premix 2 g (COMPLETED) 2 g, Intravenous, Administer over 30 Minutes, at 100 mL/hr, Once, On Mon04/30/24 at 1630, For 1 dose 1741 (New Bag - Prov ider: Arlene Arndt RN)1814 (Stopped - Provider: Arlene Arndt RN) sodium chloride 0.9% bolus 1,000 mL (COMPLETED) 1,000 mL, Intravenous, Administer over 30 Minutes, at 2,000 mL/hr, Once, On Mon04/30/24 at 1630, For 1 dose 1653 (New Bag - Prov ider: Arlene Arndt RN)1809 (Stopped - Provider: Arlene Arndt RN) PRN Medication Order 04/28/2024 04/29/2024 04/30/2024 sodium chloride (NS) 0.9 % syringe flush 3 mL 3 mL, Intravenous, As needed, line care, Starting on Mon04/30/24 at 1627, Per Institutional IV Line Care Policy. documented in this encounter Additional Health Concerns Assessment Noted Time PHQ-9 Depression Total Score: 10 024 7:11 PM EST PHQ-2 Depression Total Score: 3 02/01/20 24 7:11 PM EST documented as of this encounter Care Teams Civil Design Technician Relationship Specialty Start Date End Date Mable Ramirez CNP [address] [place] [phone] PCP - General Nurse Practitioner 02/08/24 documented as of this encounter Additional Source Comments The information contained in this document represents components of the legal health record. It is not the complete legal health record.[facility]
--- OUTSIDE RECORDS SUMMARY | 2024-05-03 15:29 | XMS_ITS | Encounter Summary ---
Author Organization [facility] Address [address] [facility] [address] [place] [phone] Phone Care Team Providers Care Showplace Manager Name Role Phone Mable Ramirez CNP Primary Care Provid er Encounter Details Date Type Department Care Team (Late st Contact Info) Description 04/30/2024 Procedure Pass [facility], Ct Scan - [address] [address] Social History Tobacco Use Types Packs/Day Years [...] high school, GED, job training, learning the [place]orese language, technical skills, or developing parenting skills)? [...] documented as of this encounter Care Teams Showplace Manager Relationship Specialty Start Date End Date Mable Ramirez CNP [address] [place] [phone] PCP - General Nurse Practitioner 02/08/24 documented as of this encounter Additional Source Comments The information contained in this document represents components of the legal health record. It is not the complete legal health record.[facility]
--- OUTSIDE RECORDS SUMMARY | 2024-05-03 15:30 | XMS_ITS | Encounter Summary ---
Author Organization [facility] Address [address] [facility] [address] [place] [phone] Phone Care Team Providers Care Msws Name Role Phone Mable Ramirez CNP Primary Care Provid er Reason for Visit * Reason Onset Date Comments Medication Refill 04/05/2024 Encounter Details Date Type Department Care Team (Late st Contact Info) Description 04/05/2024 [facility]ill [facility] [address] [place], [place] [phone] Esdras [place], [place] 10 [place], [place] Medication Refill Social History Tobacco Use Types Packs/Day Years [...] high school, GED, job training, learning the Emirati language, technical skills, or developing parenting skills)? [...] Intimate Partner Violence Answer Date R ecorded Denied Basic Needs Not on file 02/10/2024 In the past 12 months have y ou been in a relationship with a person who hurts, threatens, or tries to control you? No 02/10/2024 Worried food would run out Not on file 02/09 In the past 12 months have y ou been in a relationship with a person who hurts, threatens, or tries to control you? No 02/10/2024 Sex and Gender Information Value Date Recorded [...] documented as of this encounter Care Teams Msws Relationship Specialty Start Date End Date Mable Ramirez CNP [address] [place] [phone] PCP - General Nurse Practitioner 02/08/24 documented as of this encounter Additional Source Comments The information contained in this document represents components of the legal health record. It is not the complete legal health record.[facility]
--- OUTSIDE RECORDS SUMMARY | 2024-05-03 15:30 | XMS_ITS | Encounter Summary ---
Author Organization [facility] Address [address] [facility] [address] [place] [phone] Phone Care Team Providers Care Italian Lecturer Name Role Phone Mable Ramirez CNP Primary Care Provid er Reason for Visit * Reason Onset Date Comments Headache 04/30/2024 Encounter Details Date Type Department Care Team (Late st Contact Info) Description 04/30/2024 Telephone [facility] [address] [place], [place] [phone] Belinda Kang, RN [address] [place], [place] Headache Social History Tobacco Use Types Packs/Day Years [...] high school, GED, job training, learning the Indonesian language, technical skills, or developing parenting skills)? [...] as of this encounter Progress Notes * Belinda Kang RN - 04/30/2024 9:28 AM EDT Ab was seen in the ED yesterday 04/29 at [facility] for an ongoing migraine w/o relief for about a week. Ab states that they were medicated and then discharged w/o imaging. Today they feel a little betterbut they are still experiencing a BOLTON with some dizziness and feel as though they are wiped out. Urgent booked with provider for same day documented in this encounter Plan of Treatment Not on file documented as of this encounter Visit Diagnoses Not on filedocumented in this encounter Additional Health Concerns Assessment Noted Time PHQ-9 Depression Total Score: 10 024 7:11 PM EST PHQ-2 Depression Total Score: 3 02/01/20 24 7:11 PM EST documented as of this encounter Care Teams Italian Lecturer Relationship Specialty Start Date End Date Mable Ramirez CNP [address] [place] [phone] PCP - General Nurse Practitioner 02/08/24 documented as of this encounter Additional Source Comments The information contained in this document represents components of the legal health record. It is not the complete legal health record.[facility]
--- OUTSIDE RECORDS SUMMARY | 2024-05-03 15:30 | XMS_ITS | Encounter Summary ---
Author Organization [facility] Address [address] [facility] [address] [place] [phone] Phone Care Team Providers Care Brush Clearer Surveying Name Role Phone Mable Ramirez CNP Primary Care Provid er Reason for Visit * Reason Comments Urgent Visit ER follow up,Severe headache, worse pain going up spine into shoulders and back of head. Reports some left sided head pain in the methodist area. Encounter Details Date Type Department Care Team (Late st Contact Info) Description 04/30/2024 2:30 PM EDT Office Visit [address] [phone] Esperanza Toure MD [address] [place] [address] [phone] Acute intractable headache, unspecified headache type (Primary Dx); History of Chiari malformation Social History Tobacco Use Types Packs/Day Years [...] high school, GED, job training, learning the Puerto Rican language, technical skills, or developing parenting skills)? [...] as of this encounter Progress Notes * Espearnza Toure MD - 04/30/2024 2:30 PM EDT SUBJECTIVE: Worst BOLTON of life Onset abrupt Duration 5 days Associated with N/V/Photophobia Not relieved by tryptans, tylenol, motrin, fluids Seen at [place] ED last evening and given 3 meds including magnesium as well as a liter of NS. No CT. Has a chiari malformation dx'd 2 years ago. Non surgical at this point as it is not giving patient trouble Other Active Issues: Diagnosed with Hyperthyroid in January. E consult placed. Next lab draw is ino week. Is not experiencing fever, tachycardia, agitation, restlessness, sweating, diarrhea, dyspnea, HTN. Has had cyclical vomiting since childhood. Diagnosed at age 4. OBJECTIVE Vitals Oxygen saturation: 99% Heart rate: 85 Temperature: 98.2 BP 147/68 General: Sitting upright in chair, wearing sunglasses Skin: appears warm and dry Head: AT/NC Eyes: clear, without redness, swelling, or discharge. Nose: No visible signs of congestion or nasal discharge. Respiratory: Nonlabored breathing MS: RENNER appropriately Neurological: grossly intact Mental Status: Speech is clear, coherent, and logical. Mood stable. Affect appropriate ASSESSMENT: Known hyperthroid mid workup and without defining ssxs of thyroid storm but this is in the differential Chiari malformation and worsening headache. Concern for intralcrania process. This is beyone our level of expertise and will require evaluation by ED team to determine if CT/MR or other imaging and testing is indicated Plan: To [facility] ED now I personally spent a total of 30 minutes on care for this patient on date of encounter. This includes face to face time during the visit as well as non face to face time spent on chart review, documentation and care coordination. documented in this encounter Plan of Treatment Not on file documented as of this encounter Visit Diagnoses Diagnosis Acute intractable headache, unspecified headache type- Primary History of Chiari malformation documented in this encounter Additional Health Concerns Assessment Noted Time PHQ-9 Depression Total Score: 10 024 7:11 PM EST PHQ-2 Depression Total Score: 3 02/01/20 24 7:11 PM EST documented as of this encounter Care Teams Brush Clearer Surveying Relationship Specialty Start Date End Date Mable Ramirez CNP [address] [place] [phone] PCP - General Nurse Practitioner 02/08/24 documented as of this encounter Additional Source Comments The information contained in this document represents components of the legal health record. It is not the complete legal health record.[facility]
== END 2024-05-07 07:09 | disposition home or self-care (01) ==
LOC: HO.HSMS 13:45
PROVIDERS: PCP Internal Medicine; Visit Provider Nurse Practitioner Family
DX: Q04.8 Other specified congenital malformations of brain (principal); G43.901 Migraine, unspecified, not intractable, with status migrainosus; G43.909 Migraine, unspecified, not intractable, without status migrainosus; R11.2 Nausea with vomiting, unspecified; M54.2 Cervicalgia
CPT/HCPCS: 99214

== ENCOUNTER → 2024-05-03 13:44 | Outpatient (BNVA) | payer OTHER, SELFPAY | PROVIDERS: PCP Internal Medicine; Visit Provider Nurse Practitioner Family ==

== ENCOUNTER 2024-06-11 15:17 | Outpatient (AMB) | payer OTHER, SELFPAY ==
--- NOTE | 2024-06-11 15:25 | A.OFFVIS_ITS ---
Vital Signs 06/11/24 15:26 Height 5 ft 3 in Weight 215 lb 8 oz BMI 38.2 BP 120/76 Blood Pressure Location Lt brachial Position Sitting Pulse 112 H Pulse Source Pulse Oximeter Pulse Oximetry (%) 98 Oxygen Delivery Method Room Air Intake Visit Reasons: Follow up Intake Note: Patient presents follow up migraines medication. Allergies haloperidol [From Haldol] Allergy (Intermediate, Verified 06/11/24 15:28) Itching tree nut Allergy (Unknown, Verified 06/11/24 15:28) Unknown Medication List - Last Reconciled 06/11/24 by MENDEZ Lindo cyclobenzaprine 5 - 10 mg (1 - 2 x 5 mg) PO BEDTIME PRN 30 days epinephrine IM escitalopram oxalate 10 mg PO DAILY lorazepam 0.5 mg PO DAILY PRN ondansetron 4 mg PO Q12H PRN 30 days sumatriptan 20 mg/actuation 20 mg intranasal Q2H PRN 22 days sumatriptan succinate 50 - 100 mg orally at onset of headache, may repeat in 2 hrs PRN; max 2 tabs per day or 4 tabs/week (may take with Ibuprofen) 30 days zolmitriptan (Zomig) take 1 tab at onset of headache; if no relief, may repeat 1 tab after at least 2 hrs; max = 2 tabs/24 hrs PO 30 days HPI Comments Details: 23-yr-old presents for follow-up of migraine. Patient reports since the last visit, the status migraine resolved. Due to the severity of the status migraine, patient decided to make some significant lifestyle changes in hopes of preventing further severe migraine attack. Pt reports they have increased their physical activity- primarily strength training-less so cardio- their friend has a home gym. They have also increased protein intake. Now having 1 migraine attack every 2 weeks, now lasting 1 day with taking new triptan. The Zomig is helpful, but causes sleepiness. They never received the sumatriptan nasal spray. On chart review, sumatriptan nasal spray was recently approved by patient's insurance. 05/03/2024 previous HPI: Pt reports they were having a migraine every 2-4 weeks, which was responsive to sumatriptan. They has noticed a slight increase frequency in migraine in the last few months. 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 Then 1.5 weeks ago, she developed a more severe migraine, they took sumatriptan which helped, but then woke up again with the headache, and that pattern repeated for a few days, and then they developed N/V. Then developed dizziness, and could not work , and tried to work Monday but was very photophobic- had to wear sunglasses all day. Then Monday, developed vomiting. On Monday, they went to [facility] ER- tx'd w/ migraine cocktail and once effective d/c'd pt. On Monday, they felt ok. On Monday, woke up ok, but then around 8am developed bad vertigo- had to catch herself on the wall. She saw her PCP in the afternoon, on the way to the PCP office, developed a right sided electrical pain stemming from the neck moving up the head, and then had right frontal sharp pain a/w photophobia, phonophobia. The PCP sent them back to the ER. In the ER, was given a migraine cocktail which was effective, and head CT was baseline. On Mon- they felt better, but after school, again developed nausea and migraine and could not do scheuled plans. discharged home on alt ibuprofen and tylenol. On - felt less throbbing headache, and more a pressure headache- not as severe as before. But was having neck tightness, stiffness, and left sided neck electrical neck/back spine. Note- rizatriptan is better tolerated but takes longer to work and not as effective as sumatriptan. They had called the office with above- I sent orders for prednisone, omeprazole, cyclobenzaprine. Started the cyclobenzaprine last night- helped them sleep better and was not waking up every few hours. they started prednisone last night and took 2nd dose thsi am. using a heating maurer on neck and resting is feeling less headache today and less but still present neck tightness. 03/22/2023, MR/MR head/brain wo/w con and MR/MR cervical spine wo/w con IMPRESSION: 1. No acute intracranial abnormalities. No abnormal intracranial enhancement. 2. The cerebellar tonsils remain low lying, positioned 0.7 cm below the foramen magnum (similar to exam from 2022). This may be seen in the setting of underlying Chiari I malformation. No demonstrated additional secondary findings of intracranial hypotension/hypertension at this time. 3. No additional MRI abnormalities of the cervical spine. No abnormal enhancement. PFSH Medical History Depression Asthma Family History Mother Hypothyroidism Migraines Maternal Grandmother Lung cancer CAD (coronary artery disease) Paternal Grandmother Lung cancer Father Asthma Heart disease Social History Alcohol intake: never Patient Tobacco Use Status: Never used Tobacco Physical Exam Vital Signs: Last Vital Signs Pulse 112 H 06/11/24 15:26 BP 120/76 06/11/24 15:26 Pulse Ox 98 06/11/24 15:26 Oxygen Delivery Method Room Air 06/11/24 15:26 BMI result Body Mass Index 38.2 Const General: cooperative and no acute distress Orientation/consciousness: patient oriented x3 Resp Effort & Inspection: normal respiratory effort and able to speak in complete sentences Neuro General: patient oriented x3 Cranial nerves: Yes CN's II-XII intact bilaterally Cognition (Neuro): normal cognition Psych Appearance: grossly normal Mental Status: mental status grossly normal Speech and movement: Normal speech and movement present Affect: normal affect Attitude: cooperative Assessment & Plan Assessment & Plan (1) Migraine: Code(s): G43.909 - Migraine, unspecified, not intractable, without status migrainosus Category: Medical Qualifiers: Migraine type: migraine (< 15 days per month) without aura Status mi grainosus presence: without status migrainosus Intractability: not intractable Qualified Code(s): G43.009 - Migraine without aura, not intractable, without status migrainosus (2) Nausea and vomiting: Comment: Associated with more severe migraine attack Code(s): R11.2 - Nausea with vomiting, unspecified Category: Medical Qualifiers: Vomiting type: unspecified Qualified Code(s): R11.2 - Nausea with vomiting, unspecified (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 For overall migraine treatment: Continue to optimize positive lifestyle factors, such as eating well balance healthy diet, engaging in regular physical activity. Continue psychotherapy For cervicalgia: Continue cyclobenzaprine 5-10 mg q.h.s. as needed for neck pain and muscle spasm/tightness For acute headache treatment: Continue Sumatriptan 100mg tab, 1/2 - 1 tab (50-100mg) at onset of headache, may repeat in 2 hours. Max of 2 tabs (200mg) per 24 hours. Continue zolmitriptan 5 mg tab at onset of migraine, may repeat in 2 hours. Max of 10 mg per day. Trial sumatriptan 20 mg intranasal spray at onset of migraine associated with nausea and vomiting, may repeat in 2 hours, max 40 mg per day. Has not insurance authorization, order recent pharmacy. May adjunct either triptan with OTC Tylenol 650mg q 4 hours, Ibuprofen 600mg q 6 hours, or Naproxen 440mg q 12 hrs prn. Continue Lorazepam 0.5mg prn Continue Zofran 4mg ODT- 1-2 tabs prn. Previous acute migraine medication trials: Haldol- burning skin sensation (given in the ER). Rizatriptan- not as effective as sumatriptan. Acute migraine medication contraindications: none at this time Future considerations: DHE, budesonide, Zomig nasal spray, sumatriptan injection. ? For headache prevention medication: Discussed trialing nutraceuticals and/or neuromodulation devices, such as: * Riboflavin 400 mg daily in morning * Co Q10 daily in the morning * Magnesium 400 mg daily at bedtime * TENs device such as head-aterm or cefaly. Continue to hold previous recommendation for Topiramate 25-50mg qhs- pt was wary of s/e's. Previous migraine prevention medication trials: None Migraine prevention medication contraindications: BBs d/t dx of asthma. Amitriptyline- their mother had adverse reaction. ? F/u in 6 months or sooner prn Medications: Changed From sumatriptan 20 mg/actuation administer into one nostril as a single dose; if 2nd dose needed,administer into other nostril after at least 2 hrs, NTE 2 doses (40 mg) per episode 20 mg intranasal Q2H 22 days PRN 6 ea 6RF migraine headache G43.909 - Migraine, unspecified, not intractable, without status migrainosus, R11.2 - Nausea with vomiting, unspecified To sumatriptan 20 mg/actuation administer into one nostril as a single dose; if 2nd dose needed,administer into other nostril after at least 2 hrs, NTE 2 doses (40 mg) per episode 20 mg intranasal Q2H 30 days PRN 6 ea 6RF migraine headache G43.909 - Migraine, unspecified, not intractable, without status migrainosus, R11.2 - Nausea with vomiting, unspecified Coding Level of Care Code Est Pt Level 4 (09349) Diagnoses Migraine without aura and without status migrainosus, not intractable G43.009 Migraine type: migraine (< 15 days per month) without aura Status migrainosus presence: without status migrainosus Intractability: not intractable Nausea and vomiting, unspecified vomiting type R11.2 Vomiting type: unspecified Cerebellar tonsillar ectopia Q04.8 Occipital headache R51.9 Cervicalgia M54.2
[2024-06-11 15:26] VITALS: BP 120/76; PULSE 112; O2SAT 98; BMI 38.2
--- OUTSIDE RECORDS SUMMARY | 2024-06-11 18:11 | XMS_ITS | Clinical Summary ---
Author Organization [facility] Address [address] [employer] [facility] [address] [place] [phone] Phone Care Team Providers Care Shirt Folder Name Role Phone Mable Ramirez CNP Primary [...] 1 spray by Nasal route. 11/13/2023 11/12/2024 Active albuterol 90 mcg/actuation inhaler Inhale 2 puffs into the lungs every 6 (six) hours as needed for wheezing or shortness of breath/dyspnea. 8 g 3 04/05/2024 Active Active Problems Problem Noted Date Diagnosed Date Cyclic vomiting syndrome 10/17/2022 023 Encounters Date Type Department Care Team Description 06/11/2024 12:02 PM EDT Hospital Encounter [facility] [address] [place] [address] Esperanza Toure MD 05/03/2024 Nurse Triage [facility] [address] [place] [phone] Esperanza Toure MD 05/02/2024 E-Consult [facility] [address] [facility], [address] [place] [address] Monika Moran MD 05/02/2024 Telephone [facility] [address] [place] [phone] Caroline Yap RN Triage 05/01/2024 Orders Only [facility] [address] [place] [phone] Esperanza Toure MD Thyroid disease (Primary Dx) 04/30/2024 3:53 PM EDT - 04/30/2024 7:34 PM EDT Emergency [facility] [address] [place] [phone] Discharge Disposition: Home or Self Care 04/30/2024 2:30 PM EDT Office Visit [facility] [address] [place] [phone] Esperanza Toure MD Acute intractable headache, unspecified headache type (Primary Dx); History of Chiari malformation 04/30/2024 Procedure [facility], Ct Scan - [place] [address] [place] [address] 04/30/2024 Telephone [facility] [address] [place] [phone] Belinda Kang RN Headache 04/05/2024 Refill [facility] [address] [place] [address] [phone] Bal Dewitt [place] Medication Refill from Last 3 Months Immunizations Name Administration [...] high school, GED, job training, learning the Haitian language, technical skills, or developing parenting skills)? [...] REPEAT PHQ 03/03/2024 02/01/2024, 02/01/2024 COVID-19 VACCINE () 10/21/2024 11/30/2020, 05/20/2020, 04/29/2020 Postponed from 10/22/2023 (Patient Declines / Guardian Declines) PAP SMEAR [...] WITH REFLEX STAT 04/30/2024 4:40 PM EDT from Last 3 Months Results * CT HEAD WITHOUT CONTRAST (04/30/2024 5:21 PM EDT) Anatomical Region Laterality Modality Head Computed Tomogra phy 04/30/2024 6:53 PM EDT Impressions 04/30/2024 7:00 PM EDT No acute intracranial findings. Low-lying cerebellar tonsils. Narrative 04/30/2024 7:[address] HEAD WITHOUT CONTRAST Referring clinician's provided indication for this examination in [facility]: * Headache, chronic, new features or increased [...] clinician's provided indication for this examination in [facility]: *Headache, chronic, new features or increased frequency; [...] EDT) TSH 1.70 0.27 - 4.20 uIU/mL [facility] Blood 04/30/2024 4:40 PM EDT 04/30/2024 4:43 PM EDT Gayla Stevenson PA-C LAB BLOOD ORDERABLE S [facility] [address] [place] [address] from Last 3 Months Care Teams Shirt Folder Relationship Specialty Start Date End Date Mable Ramirez CNP [address] [place] [phone] PCP - General Nurse Practitioner 02/08/24 Additional Source Comments The information contained in this document represents components of the legal health record. It is not the complete legal health record.[facility]
--- OUTSIDE RECORDS SUMMARY | 2024-06-11 18:11 | XMS_ITS | Encounter Summary ---
Author Organization [facility] Address [address] [facility] [address] [place] [phone] Phone Care Team Providers Care Industrial Controller Name Role Phone Mable Ramirez CNP Primary Care Provid er Encounter Details Date Type Department Care Team (Late st Contact Info) Description 06/11/2024 12:02 PM EDT Hospital Encounter [facility] [address] [place] [address] Esperanza Toure MD [address] [place] [address] [phone] Social History Tobacco Use Types Packs/Day Years [...] high school, GED, job training, learning the Liberian language, technical skills, or developing parenting skills)? [...] as of this encounter Plan of Treatment Pending Results Name Type Priority Associated Diagnoses Date /Time TSH with reflex Lab Routine Graves disease 06/11/2024 12:02 PM EDT Scheduled Orders Name Type Priority Associated Diagnoses Orde r Schedule TSH with reflex Lab Routine Graves disease As Needed for 1 Occurrences starting 06/11/2024 until 06/11/2024 documented as of this encounter Visit Diagnoses Diagnosis Graves disease Toxic diffuse goiter without mention of thyrotoxic crisis or storm documented in this encounter Additional Health Concerns Assessment Noted Time PHQ-9 Depression Total Score: 10 024 7:11 PM EST PHQ-2 Depression Total Score: 3 02/01/20 24 7:11 PM EST documented as of this encounter Care Teams Industrial Controller Relationship Specialty Start Date End Date Mable Ramirez CNP [address] [place] [phone] PCP - General Nurse Practitioner 02/08/24 documented as of this encounter Additional Source Comments The information contained in this document represents components of the legal health record. It is not the complete legal health record.[facility]
--- OUTSIDE RECORDS SUMMARY | 2024-06-11 18:11 | XMS_ITS | Encounter Summary ---
Author Organization [facility] Address [address] [employer] [facility] [address] [place] [phone] Phone Care Team Providers Care Office Admin Name Role Phone Mable Ramirez CNP Primary Care Provid er Encounter Details Date Type Department Care Team (Late st Contact Info) Description 04/30/2024 Procedure [facility], Ct Scan - [address] [address] Social History Tobacco Use Types Packs/Day Years [...] high school, GED, job training, learning the Slovenian language, technical skills, or developing parenting skills)? [...] documented as of this encounter Care Teams Office Admin Relationship Specialty Start Date End Date Mable Ramirez CNP [address] [place] [phone] PCP - General Nurse Practitioner 02/08/24 documented as of this encounter Additional Source Comments The information contained in this document represents components of the legal health record. It is not the complete legal health record.[facility]
== END 2024-06-11 16:17 | disposition home or self-care (01) ==
LOC: HO.HSMS 15:17
PROVIDERS: PCP Internal Medicine; Visit Provider Nurse Practitioner Family
DX: G43.009 Migraine without aura, not intractable, without status migrainosus (principal); R11.2 Nausea with vomiting, unspecified; Q04.8 Other specified congenital malformations of brain; R51.9 Headache, unspecified; M54.2 Cervicalgia
CPT/HCPCS: 99214

== ENCOUNTER → 2024-06-11 15:17 | Outpatient (BNVA) | payer OTHER, SELFPAY | PROVIDERS: PCP Internal Medicine; Visit Provider Nurse Practitioner Family ==

== ENCOUNTER 2024-12-18 15:10 | Outpatient (AMB) | payer OTHER, SELFPAY ==
[2024-12-18 15:16] VITALS: BP 124/82; PULSE 70; O2SAT 99; BMI 34.7
--- NOTE | 2024-12-18 15:16 | A.OFFVIS_ITS ---
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 Accompanied by: Self / Same As Patient Allergies haloperidol (From Haldol) Allergy (Intermediate, Verified 12/18/24 15:17) Itching tree nut Allergy (Unknown, Verified 12/18/24 15:17) Unknown Medication List - Last Reconciled 12/18/24 by MENDEZ Lindo cyclobenzaprine 5 - 10 mg (1 - 2 x 5 mg) PO BEDTIME PRN 30 days epinephrine IM escitalopram oxalate 10 mg PO DAILY lorazepam 0.5 mg PO DAILY PRN omeprazole 20 mg PO DAILY 30 days ondansetron 4 mg PO Q12H PRN 30 days prednisone 50 mg (5 x 10 mg) PO DAILY 5 days sumatriptan 20 mg/actuation 20 mg intranasal Q2H PRN 30 days sumatriptan succinate 50 - 100 mg orally at onset of headache, may repeat in 2 hrs PRN; max 2 tabs per day or 4 tabs/week (may take with Ibuprofen) 30 days zolmitriptan (Zomig) take 1 tab at onset of headache; if no relief, may repeat 1 tab after at least 2 hrs; max = 2 tabs/24 hrs PO 30 days HPI Comments Details: 12/18/2024 HPI: 24-yr-old presents for follow-up of migraine. In October, patient notify the office that they were having an unprovoked status migraine attack, which was treated with a course of prednisone and prn Benadryl. Patient reports this was effective for breaking this migraine attack. Since, patient has started taking Co-Q10 and Mag every day. They feel this may be helpful, but it is too soon to know for sure. Patient also reports that they are now teaching in a new school district, which is a better fit for them as it is a smaller school system and has less students. They report that they are prone to posterior neck tightness, which increases during acute migraine attacks. The patient also reports that sumatriptan tablet is more effective than the previous Zomig. The sumatriptan nasal spray can help to take the edge off of a sudden abrupt migraine attack a/w nausea, but still may have lingering headache and need to take a follow-up sumatriptan tablet. Baseline migraine attack: mild- mod headache a/w photophobia, phonophobia, osmophobia w/o abdominal s/s. Severe: starts with nausea and shaking f/b abd pain (like a knife is cutting her form the inside out), vomiting (this does not stop the attack), shakiness (can be severe and last hours), w/wo headache, and a/w photophobia, phonophobia, osmophobia, inability speak (they feel they just cannot communicate during the attack), brain fog, tiredness. 05/03/2024 HPI: Pt reports they were having a migraine every 2-4 weeks, which was responsive to sumatriptan. They has noticed a slight increase frequency in migraine in the last few months. 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 Then 1.5 weeks ago, they developed a more severe migraine, they took sumatriptan which helped, but then woke up again with the headache, and that pattern repeated for a few days, and then they developed N/V. Then developed dizziness, and could not work , and tried to work Monday but was very photophobic- had to wear sunglasses all day. Then Monday, developed vomiting. On Monday, they went to [facility] ER- tx'd w/ migraine cocktail and once effective d/c'd pt. On Monday, they felt ok. On Monday, woke up ok, but then around 8am developed bad vertigo- had to catch herself on the wall. She saw her PCP in the afternoon, on the way to the PCP office, developed a right sided electrical pain stemming from the neck moving up the head, and then had right frontal sharp pain a/w photophobia, phonophobia. The PCP sent them back to the ER. In the ER, was given a migraine cocktail which was effective, and head CT was baseline. On Mon- they felt better, but after school, again developed nausea and migraine and could not do scheuled plans. discharged home on alt ibuprofen and tylenol. On - felt less throbbing headache, and more a pressure headache- not as severe as before. But was having neck tightness, stiffness, and left sided neck electrical neck/back spine. Note- rizatriptan is better tolerated but takes longer to work and not as effective as sumatriptan. They had called the office with above- I sent orders for prednisone, omeprazole, cyclobenzaprine. Started the cyclobenzaprine last night- helped them sleep better and was not waking up every few hours. they started prednisone last night and took 2nd dose thsi am. using a heating maurer on neck and resting is feeling less headache today and less but still present neck tightness. 03/22/2023, MR/MR head/brain wo/w con and MR/MR cervical spine wo/w con IMPRESSION: 1. No acute intracranial abnormalities. No abnormal intracranial enhancement. 2. The cerebellar tonsils remain low lying, positioned 0.7 cm below the foramen magnum (similar to exam from 2022). This may be seen in the setting of underlying Chiari I malformation. No demonstrated additional secondary findings of intracranial hypotension/hypertension at this time. 3. No additional MRI abnormalities of the cervical spine. No abnormal enhancement. [facility] Medical History Depression Asthma Family History Mother Hypothyroidism Migraines Maternal Grandmother Lung cancer CAD (coronary artery disease) Paternal Grandmother Lung cancer Father Asthma Heart disease Social History Alcohol intake: never Patient Tobacco Use Status: Never used Tobacco Physical Exam Vital Signs: Last Vital Signs Pulse 70 12/18/24 15:16 BP 124/82 12/18/24 15:16 Pulse Ox 99 12/18/24 15:16 Oxygen Delivery Method Room Air 12/18/24 15:16 BMI result Body Mass Index 34.7 Const General: cooperative and no acute distress Orientation/consciousness: patient oriented x3 Resp Effort & Inspection: normal respiratory effort and able to speak in complete sentences Neuro General: patient oriented x3 Cranial nerves: Yes CN's II-XII intact bilaterally Cognition (Neuro): normal cognition Psych Appearance: grossly normal Mental Status: mental status grossly normal Speech and movement: Normal speech and movement present Affect: normal affect Attitude: cooperative Assessment & Plan Assessment & Plan (1) Migraine: Code(s): G43.909 - Migraine, unspecified, not intractable, without status migrainosus Category: Medical Qualifiers: Migraine type: migraine (< 15 days per month) without aura Status migrainosus presence: without status migrainosus Intractability: not intractable Qualified Code(s): G43.009 - Migraine without aura, not intractable, without status migrainosus (2) Nausea and vomiting: Comment: Associated with more severe migraine attack Code(s): R11.2 - Nausea with vomiting, unspecified Category: Medical Qualifiers: Vomiting type: unspecified Qualified Code(s): R11.2 - Nausea with vomiting, unspecified (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 For overall migraine treatment: Continue to optimize positive lifestyle factors, such as eating well balance healthy diet, engaging in regular physical activity. Continue psychotherapy For cervicalgia: We will order PT eval and treat- in location close to patient's school and home location. Continue cyclobenzaprine 5-10 mg q.h.s. as needed for neck pain and muscle spasm/tightness For acute headache treatment: Continue Sumatriptan 100mg tab, 1/2 - 1 tab (50-100mg) at onset of headache, may repeat in 2 hours. Max of 2 tabs (200mg) per 24 hours. Discontinue zolmitriptan 5 mg tab order- not as effective as sumatriptan. Continue sumatriptan 20 mg intranasal spray at onset of migraine associated with nausea and vomiting, may repeat in 2 hours, max 40 mg per day. Has not insurance authorization, order recent pharmacy. Trial Sumatriptan 6 mg subcutaneous injection: * Inject 1 injection at onset of severe migraine attack associated with nausea and vomiting, you may repeat in 1 hour. Max of 2 injections per per 24 hours. * Potential adverse effects of injectable triptans, include but are not limited to injection site irritation, nausea, fatigue, chest tightness/tingling (usually passes within a few minutes), medication overuse headaches. May take the falling with with either sumatriptan tablet, nasal spray, or injection: * OTC Tylenol 650-1,000mg every 4-6 hours, Ibuprofen (liquid gels) 600mg every 6 hours, or Naproxen (liquid gels) 440mg q 12 hrs prn. Continue Lorazepam 0.5mg prn Continue Zofran 4mg ODT- 1-2 tabs prn. Continue Benadryl 25-50 mg every 6-8 hours as needed Previous acute migraine medication trials: Haldol- burning skin sensation (given in the ER). Rizatriptan- not as effective as sumatriptan. Zolmitriptan was not as effective as sumatriptan. Acute migraine medication contraindications: none at this time Future considerations: DHE, budesonide, Zomig nasal spray. ? For headache prevention medication: Continue OTC: * Riboflavin 400 mg daily in morning * Co Q10 daily in the morning * Magnesium 400 mg daily at bedtime Discussed trying neuromodulation devices, such as: * TENs device such as head-a-term or cefaly. * or RENS device, Nerivio Continue to hold previous recommendation for Topiramate 25-50mg qhs- pt was wary of s/e's. Previous migraine prevention medication trials: None Migraine prevention medication contraindications: BBs d/t dx of asthma. Amitriptyline- their mother had adverse reaction. ? F/u in 6 months or sooner prn Orders: Orders PT Evaluation and Treatment Today G43.009 - Migraine without aura, not intractable, without status migrainosus, M54.2 - Cervicalgia Medications: New sumatriptan succinate 6 mg subcutaneously PRN at the onset of migraine attack; you may repeat in 1 hour. Max of 12 mg per 24 hours. subcutaneously. 6 mL 3RF migraine headache with nausea 30 days M54.2 - Cervicalgia Refilled sumatriptan succinate 50 - 100 mg orally at onset of headache, may repeat in 2 hrs PRN; max 2 tabs per day or 4 tabs/week (may take with Ibuprofen) 12 tabs 6RF migraine headache 30 days Discontinued zolmitriptan (Zomig) Discontinued Reason: Doctor's Order take 1 tab at onset of headache; if no relief, may repeat 1 tab after at least 2 hrs; max = 2 tabs/24 hrs PO 30 days 12 tabs 1RF prednisone Discontinued Reason: Patient Completed Course 50 mg (5 x 10 mg) PO DAILY 5 days 25 tabs 0RF Status migraine Coding Level of Care Code Est Pt Level 4 (37064) Diagnoses Migraine without aura and without status migrainosus, not intractable G43.009 Migraine type: migraine (< 15 days per month) without aura Status migrainosus presence: without status migrainosus Intractability: not intractable Nausea and vomiting, unspecified vomiting type R11.2 Vomiting type: unspecified Cerebellar tonsillar ectopia Q04.8 Occipital headache R51.9 Cervicalgia M54.2
--- OUTSIDE RECORDS SUMMARY | 2024-12-18 19:36 | XMS_ITS | Encounter Summary ---
Author Organization [facility] Address [address] [facility] [address] [place] [id number] Phone Care Team Providers Care Surgical Appliances Salesperson Name Role Phone Mbale Ramirez CNP Primary Care Provid er Encounter Details Date Type Department Care Team (Late st Contact Info) Description 04/30/2024 Procedure Pass [facility], Ct Scan - [address] [id number] Social History Tobacco Use Types Packs/Day Years [...] high school, GED, job training, learning the [place] language, technical skills, or developing parenting skills)? [...] or tries to control you? No 04/30/2024 Comments Unknown Sex and Gender Information Value Date Recorded Sex Assigned at Female 01/22/2024 11:57 AM EST Legal Sex Female 6:57 PM EST Gender Identity Transgender Male 01/22/2024 11:5 7 AM EST Sexual Orientation Queer 01/22/2024 11 :57 AM EST documented as of this encounter Functional Status * Calculated C-SSRS Risk Score (Lifetime/Recent) Answer Date of Assessment Author No Risk Indicated 04/30/2024 3:31 PM Peggy Israel RN * [place] Suicide Severity Rating Scale (Screener/Recent Self-Report) Question Answer Date of Assessment Author 1. Wish to be (Past 1 Month) No 025 3:31 PM Peggy Israel, MAYE 2. Non-Specific Active Suici eden Thoughts (Past 1 Month) No 04/30/2024 3:31 PM EDT Burek, Peggy, RN 6. Suicidal Behavior (Lifetime) No 5 3:31 PM EDT Peggy Granados RN documented as of this encounter Plan of Treatment Not on file documented as of this encounter Visit Diagnoses Not on filedocumented in this encounter Additional Health Concerns Assessment Noted Time PHQ-9 Depression Total Score: 10 024 7:11 PM EST PHQ-2 Depression Total Score: 3 02/01/20 24 7:11 PM EST documented as of this encounter Care Teams Surgical Appliances Salesperson Relationship Specialty Start Date End Date Mable Ramirez CNP [address] [place] [phone] [email or web address] PCP - General Nurse Practitioner 02/08/24 documented as of this encounter Additional Source Comments The information contained in this document represents components of the legal health record. It is not the complete legal health record.[facility]
--- OUTSIDE RECORDS SUMMARY | 2024-12-18 19:36 | XMS_ITS | Clinical Summary ---
Author Organization [facility] Address [address] [facility] [address] [place] [phone] Phone Care Team Providers Care Gear And Spline Grinder Name Role Phone Mable Ramirez CNP Primary Care Provid er Allergies Active Allergy Reactions Criticality Noted Date Comments Haloperidol Anxiety,Itching,Shor tness Of Breath,Sweating High 04/30/2021 Tree Nuts Anaphylaxis,Cough,Hi ves,Itching,Nausea and/or Vomiting High 10/14/2022 Medications SUMAtriptan (IMITREX) 100 MG tablet Take 100 mg by mouth daily as needed. Active ondansetron (ZOFRAN-ODT) 4 MG disintegrating tablet TAKE 1 TABLET EVERY 12HOURS NEEDED FOR NAUSEA 3 Active LORazepam (ATIVAN) 0.5 MG tablet Take 0.5 mg by mouth continuous prn. 2 Active cetirizine (ZYRTEC) 10 MG tablet Take 10 mg by mouth daily. Active escitalopram oxalate (LEXAPRO) 10 MG tablet TAKE 1 AND 1/2 TABLETS DAILY BY MOUTH 90 tablet 5 4 Active hydrOXYzine HCL (ATARAX) 10 MG tablet Take 10 mg by mouth daily as needed (insomnia). Active buPROPion (WELLBUTRIN XL) 150 MG ER 24 hr tablet Take 150 mg by mouth every morning. 4 Active buPROPion SR (SMOKING DETERRENT) 150 mg Take 150 mg by mouth daily as needed. 4 Active albuterol 90 mcg/actuation inhaler Inhale 2 puffs into the lungs every 6 (six) hours as needed for wheezing or shortness of breath/dyspnea . 8 g 3 5 Active Active Problems Problem Noted Date Diagnosed Date Cyclic vomiting syndrome 10/17/2022 023 Immunizations Immunization Administration Dates Next Due COVID-19 (Pre-12/12) Pfizer Vaccine, mRNA, PF 11/30/2020,05/20/2020,04/29/2020 DTaP 03/04/2005, 2,05/30/2000,03/30,01/27/2000 HPV9 03/01/2021,11/04/2020,08/28/2020 Hepatitis B, unspecified formulation 08/21/2000, 1999,1999 Hib, unspecified formulation 08/08/2001, 05/30/2000,03/30/2000,01/26 IPV 03/04/2005, 1,03/30/2000,01/26 Influenza Quadrivalent w/ Pr eservative IM 03/01/2021 Influenza Recombinant Jasmina valent Preservative Free IM 03/01/2021,12/18/2019 MMR 03/01/2004,11/28/2000 Meningococcal B, OMV (MenB-4C) 10/11/2018 [...] high school, GED, job training, learning the [place] language, technical skills, or developing parenting skills)? [...] 68 04/30/2024 7:33 PM EDT Temperature 37.4 C (99.3 F) 04/30/2024 6:29 PM EDT Respiratory Rate 16 04/30/2024 7:33 PM EDT Oxygen Saturation 98% 04/30/2024 7:33 PM EDT Inhaled Oxygen Concentration - - Weight 100 kg (220 lb 7.4 oz) 04/30/2024 3:25 PM EDT Height 165.1 cm (5' 5 ) 04/30/2024 3:25 PM EDT Body Mass Index 36.69 04/30/2024 3:25 PM EDT Plan of Treatment Health Maintenance Due Date Last Done Comments MENINGOCOCCAL VACCINES (B) (2 of 2 - Bexsero SCDM 2-dose series) 04/13/2019 10/11/2018 PAP SMEAR 11/25/2020 REPEAT PHQ 03/03/2024 02/01/2024, 02/01/2024 INFLUENZA VACCINE (#1) 2024 2, 03/01/2021, 12/18/2019 COVID-19 VACCINE ( season) 2024 11/30/2020, 05/20/2020, 04/29/2020 HIV ONE-TIME SCREENING (18-65 YEARS) 01/20/2025 Postponed from 11/25/2017 (Patient Declines / Guardian Declines) SMOKING Hx and SMOKELESS TOBACCO SCREENING 01/20/2025 Postponed from 11/25/2012 (Not Clinically Appropriate) DEPRESSION SCREENING 01/31/2025 02/01/2024, 02/01/20 24 HEPATITIS C SCREENING 02/07/2025 Postpo earlene from [...] this topic Medical Devices Not on file Insurance [facility] Care Teams Gear And Spline Grinder Relationship Specialty Start Date End Date Mable Ramirez CNP [address] [place] [phone] [email or web address] PCP - General Nurse Practitioner 02/08/24 Additional Source Comments The information contained in this document represents components of the legal health record. It is not the complete legal health record.[facility]
== END 2024-12-18 23:47 | disposition home or self-care (01) ==
LOC: HO.HSMS 15:11
PROVIDERS: PCP Internal Medicine; Visit Provider Nurse Practitioner Family
DX: G43.009 Migraine without aura, not intractable, without status migrainosus (principal); R11.2 Nausea with vomiting, unspecified; Q04.8 Other specified congenital malformations of brain; R51.9 Headache, unspecified; M54.2 Cervicalgia
CPT/HCPCS: 99214